=== PATIENT | male | born 1975 | race African-American/Black ===

== ENCOUNTER 2023-10-29 11:38 | Inpatient (IN) | payer BC, SELFPAY ==
[2023-10-29] VITALS (64 sets, daily range): BP systolic 118–180; BP diastolic 86–127; PULSE 79–140; RESP 13–25; TEMP 36.4–36.6; O2SAT 91–100
[2023-10-29] MEDS: dextrose 10% 1,000 ML 250 ML IV (11:58)
--- NOTE | 2023-10-29 12:02 | XRR_ITS ---
PROCEDURE INFORMATION: Exam: XR Chest Exam date and time: 10/29/2023 12:13 PM Age: 48 years old Clinical indication: Cough and dyspnea; Additional info: Dyspnea/cough TECHNIQUE: Imaging protocol: Radiologic exam of the chest. Views: 1 view. COMPARISON: No relevant prior studies available. FINDINGS: Tubes, catheters and devices: A right IJ CVC tip is in the right atrium. The proximal end is not visualized and I question disruption. Lungs: Unremarkable. No consolidation. Pleural spaces: Unremarkable. No pleural effusion. No pneumothorax. Heart/Mediastinum: Unremarkable. No cardiomegaly. Bones/joints: Unremarkable. XR/XR chest 1V portable [id number] IMPRESSION: 1. A right IJ CVC tip is in the right atrium. The proximal end is not visualized and I question disruption. 2. No acute cardiopulmonary abnormality.
--- NOTE | 2023-10-29 12:05 | PC.NURSE ---
VERBAL ORDERS FROM DR. HUYNH TO START THE D10 WIDE OPEN IN ORDER TO GET 250ML IN PATIENT THEN TO DROP RATE TO 50MLS AN HOUR AFTERWARDS.
--- NOTE | 2023-10-29 12:06 | PC.NURSE ---
CENTRAL LINE PLACED. PROVIDER ORDERED AMP OF D50, PULLED FROM PYXIS AND GIVEN.
--- NOTE | 2023-10-29 12:08 | ED_ITS ---
HPI - Weakness 2 General: Chief complaint: Weakness Stated complaint: Hypoglycemic Time Seen by Provider: 10/29/23 11:54 Source: patient and EMS Mode of arrival: EMS History of Present Illness: 48-year-old male presents emergency room via EMS severely hypoglycemic with reports of chronic daily alcohol use total intake daily is unknown. EMS found him unresponsive initial blood glucose at the scene was 26 they were able to give him 30 g of oral glucose however after that they only were able to get Accu-Cheks of low. They were only a few blocks from the emergency room so transported him directly they did not have time to establish an IV he is a very difficult stick. Additionally crew shank rander that it was more appropriate to get him to the ER given his overall condition which I concur with. Immediately upon arrival patient is groaning in response makes a few intelligible words withdraws to pain does open his eyes to verbal stimuli. We are unable to establish a IV emergently placed central line he was given D50 and 250 mL of D10. Associated symptoms: Denies chest pain, chills, dysuria or fever(s) Review of Systems 2 Const: Denies: fever(s) or chills Card: Denies: chest pain Resp: Denies: dyspnea GI: Denies: abdominal pain : Denies: dysuria, urinary frequency or urinary urgency Musc: Denies: neck pain or back pain Skin/Breast: Denies: rash PFSH ED 2 PFSH: Medical History (Updated 10/29/23 @ 15:37 by Yunier Cotto DO) Chronic alcoholism Esophageal varices Social History (Updated 10/29/23 @ 12:10 by Yunier Cotto DO) Alcohol intake: current Alcohol intake frequency: 3 or more drinks per day Alcohol type: hard liquor Physical Exam 2 Const: GENERAL APPEARANCE: cooperative and comfortable O RIENTATION/CONSCIOUSNESS: Yes awake HENMT: COMMON NORMALS: normocephalic, atraumatic and hearing grossly normal bilaterally HEAD & SCALP: normocephalic and atraumatic Resp: COMMON NORMALS: normal respiratory effort, No retractions, No use of accessory muscles and clear to auscultation bilaterally AUSCULTATION: clear to auscultation bilaterally Cardio: COMMON NORMALS: regular rhythm and No murmurs present (Cardio) R ATE: tachycardic RHYTHM: regular rhythm GI: COMMON NORMALS: Soft to palpation and No hepatosplenomegaly present A USCULTATION: Yes normoactive bowel sounds PALPATION: Yes Soft to palpation, No Tenderness to palpation present (GI), No Guarding due to palpation present (GI) and Yes No hepatosplenomegaly present Extremity: COMMON NORMALS: normal to inspection, capillary refill normal, no clubbing, cyanosis or edema, no calf tenderness and no pedal edema Neuro: USMAN COMA SCALE: document GCS findings Usman coma scale eye opening: To sound [place] coma scale verbal response: Words Usman coma scale motor response: Obey commands [place] coma scale total score: 12 Skin: COMMON NORMALS: no rashes or lesions noted GENERAL SKIN EXAM: no rashes or lesions noted Procedures Central Line Placement Right IJ: Patient Placed on Monitor/Pulse Ox: Yes MD Prep: mask, gown and gloves Central Line Prep: Chlorhexidine scrub Local Anesthetic: lidocaine 1% Amount of anesthesia used (mL): 5 Central Line Lumen Inserted: triple Post Procedure: sutured in place, good blood return, all ports aspirated, flushed, capped and sterile dressing applied Post Procedure X-Ray: tip of catheter in good position and no pneumothorax seen Patient Tolerated Procedure: well Complications: none Course 2 Vital Signs: Vital signs: Vital Signs Pulse Rate 120 H 10/29/23 14:46 Respiratory Rate 20 H 10/29/23 12:45 Blood Pressure 147/87 10/29/23 14:24 Pulse Oximetry 100 10/29/23 14:24 Oxygen Delivery Me thod Room Air 10/29/23 14:49 MDM - Weakness Medical Decision Making Encephalopathy with hypoglycemia and severe high anion gap metabolic acidosis. In talking to the family they are convinced there is no potential that he access methanol or ethylene glycol. I suspect this is all starvation and alcohol driven although interestingly he has no ketones. We have ordered secondary testing including serum osmolality and methanol levels. Central line was placed emergently and patient first arrived. He has been given bicarb and potassium. He is also been given fluids. There is no sign of infection at this time discussed with Dr. Zheng whether or not we should cover with antibiotics I do not believe he is septic at this point. She will evaluate further and decide if she wishes to start antibiotic. He was given a fluid bolus of 2000 mL which is greater than 30 mg/kg fluid bolus for sepsis. Cultures have been ordered. Additionally his significant other is with him and is assisting us in getting old records from [place] where he stayed hospitalized in the past. Lab Data I reviewed the patient's lab results. 10/29/23 11:55 10/29/23 11:55 Radiology Impressions Chest X-Ray 10/29/23 12:02 IMPRESSION: 1. A right IJ CVC tip is in the right atrium. The proximal end is not visualized and I question disruption. 2. No acute cardiopulmonary abnormality. ADDENDUM: 10/29/23 4670 The appearance of the proximal end of the right IJ CVC was discussed with Dr. Cotto. The reservoir is radiolucent on this image due to the patient's diminished body fat and the reservoir projecting above the patient's shoulder. This CVC is intact. Head CT 10/29/23 13:25 IMPRESSION: 1. No acute intracranial hemorrhage or edema. 2. Mild cerebral atrophy. No prior infarct. Laboratory Results WBC 12.71 10^3/uL (3.29-11.43) H 10/29/23 11:55 RBC 2.88 10^6/uL (3.85-5.65) L 10/29/23 11:55 Hgb 10.60 g/dL (11.27-16.99) L 10/29/23 11:55 Hct 31.6 % (37-53) L 10/29/23 11:55 MCV 109.7 fl (82-101) H 10/29/23 11:55 MCH 36.8 pg (27-33) H 10/29/23 11:55 MCHC 33.5 g/dL (30-55) 10/29/23 11:55 RDW 14.5 % (12.1-15.1) 10/29/23 11:55 Plt Count 230 10^3/cmm (157-399) 10/29/23 11:55 MPV 11.9 fL (7.4-10.4) H 10/29/23 11:55 Neut % (Auto) 87.9 % 10/29/23 11:55 Lymph % (Auto) 3.9 % 10/29/23 11:55 [place] % (Auto) 7.2 % 10/29/23 11:55 Eos % (Auto) 0.0 % 10/29/23 11:55 Baso % (Auto) 0.2 % 10/29/23 11:55 Neut # (Auto) 11.19 10^3/uL (1.8-7.7) H 10/29/23 11:55 Lymph # (Auto) 0.5 10^3/uL (0.8-4.8) L 10/29/23 11:55 [place] # (Auto) 0.9 10^3/uL (0.2-0.9) 10/29/23 11:55 Eos # (Auto) 0.0 10^3/uL (0.0-0.8) 10/29/23 11:55 Baso # (Auto) 0.0 10^3/uL (0.0-0.1) 10/29/23 11:55 Nucleated RBC % (auto) 0.3 % 10/29/23 11:55 Nucleated RBCs # 0.0 /100WBC 10/29/23 11:55 PT 20.10 SECONDS (12.1-14.9) H 10/29/23 11:55 INR 1.65 (0.8-1.2) H 10/29/23 11:55 APTT 30.3 SECONDS (23.9-36.7) 10/29/23 11:55 Specimen Type Arterial 10/29/23 12:45 Sample Site Brachial, left 10/29/23 12:45 ABG pH 7.08 (7.35-7.45) L* 10/29/23 12:45 ABG pCO2 12.1 mmHg (35-45) L* 10/29/23 12:45 ABG pO2 117.0 mmHg (80.0-100.0) H 10/29/23 12:45 ABG PO2/FiO2 Ratio 0 10/29/23 12:45 ABG HCO3 3.6 mmol/L (22-26) L 10/29/23 12:45 ABG O2 Saturation 96.4 10/29/23 12:45 ABG Base Excess -24.2 mmol/L (-2.0-2.0) L 10/29/23 12:45 Bertrand Test N/a 10/29/23 12:45 A-a O2 Gradient 1.8 mmHg (5-10) L 10/29/23 12:45 Hematocrit 31.3 % (42-52) L 10/29/23 12:45 Hgb O2 Saturation 94.4 % (95-100) L 10/29/23 12:45 Carboxyhemoglobin 1.2 %THgb (0.4-20.1) 10/29/23 12:45 Methemoglobin 0.9 % (0.4-1.5) 10/29/23 12:45 Total Hemoglobin 10.2 g/dL (14-18) L 10/29/23 12:45 Sodium 139.0 mmol/L (131-143) 10/29/23 12:45 Potassium 2.5 mmol/L (3.5-5.0) L 10/29/23 12:45 Glucose 312.0 mg/dL (70-115) H 10/29/23 12:45 Ionized Calcium 1.1 mmol/L (1.1-1.4) 10/29/23 12:45 O2 Delivery Device Room air 10/29/23 12:45 FiO2 21.0 % 10/29/23 12:45 Agile Scrum Master ID Amh 10/29/23 12:45 Sodium 137 mmol/L (136-145) 10/29/23 11:55 Potassium 2.2 mmol/L (3.5-5.1) L* 10/29/23 11:55 Chloride 84 mmol/L (98-107) L 10/29/23 11:55 Carbon Dioxide 5 mmol/L (22-29) L* 10/29/23 11:55 Anion Gap 50.2 (5-19) H 10/29/23 11:55 BUN 11 mg/dL (6-20) 10/29/23 11:55 Creatinine 0.9 mg/dL (0.7-1.2) 10/29/23 11:55 GFR Calculation 109.9 mL/min (90-130) 10/29/23 11:55 Glucose 460 mg/dL (65-115) H 10/29/23 11:55 POC Glucose 341 mg/dL (70-110) H 10/29/23 12:13 Calculated Osmolality 303 mOsm/kg (285-295) H 10/29/23 11:55 Lactic Acid 29.9 mmol/L (0.5-2.2) H* 10/29/23 11:55 Calcium 9.4 mg/dL (8.5-10.5) 10/29/23 11:55 Magnesium 2.1 mg/dL (1.7-2.3) 10/29/23 11:55 Total Bilirubin 4.7 mg/dL (0.15-1.2) H 10/29/23 11:55 AST 306 U/L (0-40) H 10/29/23 11:55 ALT 82 U/L (0-41) H 10/29/23 11:55 Alkaline Phosphatase 283 U/L (40-130) H 10/29/23 11:55 Ammonia 74 umol/L (16-60) H 10/29/23 11:55 Creatine Kinase 25 U/L (39-308) L 10/29/23 11:55 Troponin T Baseline 12 ng/L (0-15) 10/29/23 11:55 Total Protein 7.2 g/dL (6.6-8.7) 10/29/23 11:55 Albumin 3.2 g/dL (3.5-5.2) L 10/29/23 11:55 Globulin 4.0 g/dL (1.3-4.6) 10/29/23 11:55 Lipase 20 U/L (13-60) 10/29/23 11:55 Salicylates < 0.3 mg/dL (3-10) L 10/29/23 11:55 Acetaminophen < 5.0 ug/mL (10-30) L 10/29/23 11:55 Ethyl Alcohol < 10 mg/dL (0-10) 10/29/23 11:55 Serum Ketones Negative (Negative) 10/29/23 11:55 All radiology interpretation(s) finalized by discharge Critical Care Time 2 Critical Care Time: Critical Care Time: Yes Total Critical Care Time: 40 Attestation: The high probability of a clinically significant, sudden or life threatening deterioration of the patient's cardiovascular respiratory endocrine system(s) required my full and direct attention, intervention and personal management. The critical care time is as shown. This time is in addition to time spent performing any reported procedures but includes the following: [x] Data and vital sign review and interpretation [x] Patient assessment, examination and intervention [x] Documentation [x] Medication orders and management Discharge Plan Discharge Patient Disposition: Admitted As Inpatient Admit Provider: Annamarie Zheng Clinical Impression: Chronic alcoholism, Esophageal varices, Hypoglycemia, Acute metabolic encephalopathy, Wernicke encephalopathy, Acute hypokalemia, Metabolic acidosis, Acute lactic acidosis Condition: Stable Coding Level of Care Code ED Waterworks Operator for Yeimy Weinberg
--- NOTE | 2023-10-29 12:12 | ECG_ITS ---
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 Measurements Intervals [place] Rate: 120 P: 81 WV: 236 QRS: 63 QRSD: 87 T: 80 QT: 423 QTc: 600 Interpretive Statements SINUS TACHYCARDIA WITH FIRST DEGREE AV BLOCK MODERATE ST DEPRESSION [0.05+ mV ST DEPRESSION] No previous ECG available for comparison Electronically Signed On 10-29-2023 23:22:33 CDT by Delfino Cardenas M.D. [id number]
[2023-10-29] MEDS: dextrose 50% syringe 50 mL IVP (12:16)
[2023-10-29 12:18] LABS: Basophils % 0.2 %; Hematocrit 31.6 % (37-53); Lymphocytes # 0.5 10^3/uL (0.8-4.8); Lymphocytes % 3.9 %; Mean Corpuscular HGB Conc 33.5 g/dL (30-55); Mean Corpuscular Hemoglobin 36.8 pg (27-33); Mean Corpuscular Volume 109.7 fl (82-101); Mean Platelet Volume 11.9 fL (7.4-10.4); Monocytes # 0.9 10^3/uL (0.2-0.9); Monocytes % 7.2 %; Neutrophils # 11.19 10^3/uL (1.8-7.7); Neutrophils % 87.9 %; Nucleated Red Blood Cells % 0.3 %; Platelet Count 230 10^3/cmm (157-399); Red Blood Count 2.88 10^6/uL (3.85-5.65); Red Cell Distribution Width 14.5 % (12.1-15.1); White Blood Count 12.71 10^3/uL (3.29-11.43)
[2023-10-29 12:18] LABS: Glucose Point of Care 341 mg/dL (70-110)
--- NOTE | 2023-10-29 12:25 | PC.NURSE ---
D10 STOPPED PER VERBAL ORDERS FROM DR. HUYNH DUE TO BLOOD SUGAR OF 341.
[2023-10-29] MEDS: sodium chloride 0.9% 1,000 ML 999 ML IV ×2 (12:31→13:29)
[2023-10-29] MEDS: LORazepam 2 mg/mL INJ 10 mL MDV IVP (12:31)
[2023-10-29 12:38] LABS: Alanine Aminotransferase 82 U/L (0-41); Albumin Level 3.2 g/dL (3.5-5.2); Alkaline Phosphatase 283 U/L (40-130); Aspartate Amino Transferase 306 U/L (0-40); Blood Urea Nitrogen 11 mg/dL (6-20); Calcium 9.4 mg/dL (8.5-10.5); Chloride 84 mmol/L (98-107); Creatine Phosphokinase 25 U/L (39-308); Creatinine Clr Calc Pharmacy 100.3845; Glomerular Filtration Rate 109.9 mL/min (90-130); Glucose 460 mg/dL (65-115); Lipase 20 U/L (13-60); Magnesium 2.1 mg/dL (1.7-2.3); Osmolality Calculated 303 mOsm/kg (285-295); Sodium 137 mmol/L (136-145); Total Bilirubin 4.7 mg/dL (0.15-1.2); Total Protein 7.2 g/dL (6.6-8.7); Troponin(5th) Baseline 12 ng/L (0-15)
[2023-10-29 12:39] LABS: Ammonia 74 umol/L (16-60)
[2023-10-29 12:44] LABS: Acetaminophen < 5.0 ug/mL (10-30); Alcohol Level < 10 mg/dL (0-10); Anion Gap 50.2 (5-19); Potassium 2.2 mmol/L (3.5-5.1); Salicylate < 0.3 mg/dL (3-10)
[2023-10-29 12:45] LABS: Carbon Dioxide 5 mmol/L (22-29)
[2023-10-29 12:52] LABS: Ketone (Acetest) Serum Negative (Negative)
[2023-10-29 12:54] LABS: INR 1.65 (0.8-1.2)
[2023-10-29 12:55] LABS: Partial Thromboplastin Time 30.3 SECONDS (23.9-36.7)
[2023-10-29 12:57] LABS: Alveolar-Arterial Oxygen Gradi 1.8 mmHg (5-10); Arterial Blood Gas Hematocrit 31.3 % (42-52); Base Excess ABG -24.2 mmol/L (-2.0-2.0); Blood Gas Operator Identificat AMH; Blood Gas Sample Site Brachial, left; Blood Gas Sample Type Arterial; Carboxyhemoglobin 1.2 %THgb (0.4-20.1); HCO3 ABG 3.6 mmol/L (22-26); HGB O2 Sat 94.4 % (95-100); Ionized Calcium Level - ABG 1.1 mmol/L (1.1-1.4); Methemoglobin 0.9 % (0.4-1.5); Oxygen Device ROOM AIR; Oxygen Saturation ABG 96.4; PO2 FiO2 Ratio Arterial Blood 0; Potassium Level - ABG 2.5 mmol/L (3.5-5.0); Total Hemoglobin 10.2 g/dL (14-18)
[2023-10-29 12:58] LABS: ABG PCO2 12.1 mmHg (35-45); ABG PH Result 7.08 (7.35-7.45)
[2023-10-29 13:08] LABS: Lactic Sepsis W/Reflex 29.9 mmol/L (0.5-2.2)
--- NOTE | 2023-10-29 13:09 | PC.PHAR ---
pts family verified pts medications-states the pt stop taking his medications for 2 months and just recently restarted taking again-states the pt is still taking amlodipine 10mg jolie gonsalez last filled 01/19/23 30d/s-baclofen 20mg bid filled 05/15/23 30d/s-metoprolol succ er 50mg daily filled 08/14/23 30d/s-biktarvy 50/200/25mg one tab daily filled 09/03/23 30d/s-prilosec 20mg daily filled 09/03/23 30d/s and xifaxan 550mg bid filled 10/07/23 30d/s-
--- NOTE | 2023-10-29 13:25 | CT_ITS ---
WS: [id number] CT HEAD NONCONTRAST HISTORY: AMS/encephalopathy TECHNIQUE: Contiguous axial imaging performed through the brain in 2.5 mm imaging. Bone and soft tiss ue windows. Sagittal and coronal reformats reviewed. All CT scans at [facility] use at least one of these dose optimization techniques: automated exposure control; mA and/or kV adjustment per pa tient size (includes targeted exams where dose is matched to clinical indication); or iterative recon struction. DLP: 1123.67 mGy.cm COMPARISON: None available. No acute intracranial hemorrhage, midline shift or mass effect. Mild atrophy. Mild small vessel ischemic disease. No prior infarct. Ventricles: Normal size with no hydrocephalus. No inferior displacement of the cerebellar tonsils. Paranasal sinuses: As visualized are clear. Mastoid air cells: Well pneumatized. Calvarium and scalp: Skull is intact with no soft tissue edema or swelling. CT/CT head wo con* [id number] IMPRESSION: 1. No acute intracranial hemorrhage or edema. 2. Mild cerebral atrophy. No prior infarct.
[2023-10-29] MEDS: potassium chloride premix 100 ML 25 MEQ IV ×2 (13:29→17:58)
[2023-10-29 13:30] LABS: Add Urine Microscopic? NO; Charge for UA Resulting for Rev
[2023-10-29 13:34] LABS: Bilirubin Urine Neg (Negative); Blood Urine Neg (Negative); Glucose Urine UA 1+ (Normal); Ketones Urine 1+ (Negative); Leukocyte Esterase Urine Negative (Negative); Nitrate Urine Negative (Negative); Protein Urine Neg (Negative); Urine Appearance Clear (CLEAR); Urine Color Yellow (Yellow); Urobilinogen Urine 1 mg/dL (Negative); pH Urine 5 (5-7)
[2023-10-29 13:40] LABS: Amphetamines Screen Urine Negative (Negative); Barbiturates Screen Urine Negative (Negative); Benzodiazepines Screen Urine Negative (Negative); Cocaine Screen Urine Negative (Negative); Opiate Screen Urine Negative (Negative); PCP Screen Urine Negative (Negative); THC Screen Urine Negative (Negative)
[2023-10-29 14:00] LABS: Reflex Lactate Order REFLEX LACTIC ORDERD
--- NOTE | 2023-10-29 14:07 | ECG_ITS ---
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 Measurements Intervals [place] Rate: 125 P: 79 [place]: 195 QRS: 57 QRSD: 90 T: 76 QT: 402 QTc: 580 Interpretive Statements SINUS TACHYCARDIA MODERATE T-WAVE ABNORMALITY, CONSIDER ANTERIOR ISCHEMIA [-0.1+ mV T-WAVE IN V3/V4] Compared to ECG 10/29/2023 12:12:56 T-wave abnormality now present Possible ischemia now present First degree AV block no longer present ST (T wave) deviation no longer present Electronically Signed On 10-29-2023 23:24:21 CDT by Delfino Cardenas M.D. [id number]
[2023-10-29] MEDS: sodium bicarbonate 150 MEQ in dextrose 5% 250 ML 500 MEQ IV (14:21)
--- NOTE | 2023-10-29 14:36 | P.HP_ITS ---
Providers/Chief Complaint 2 Admitting Physician: Annamarie Zheng MD Primary Care Provider: Dr Du at [facility] in [place], [place] ([phone] main number) Chief Complaint: Hypoglycemic History of Present Illness Jack Meek is a 48 year old male who presented to the emergency room via EMS with a chief complaint of decreased responsiveness. Patient is from [facility] and was here locally visiting. His boyfriend José is with him and has provided his care for the last few weeks. José can be reached at [phone]. At baseline patient has a history of chronic alcohol use with associated alcoholic liver disease. He has had episodes of pancreatitis with the most recent hospitalization being at [facility] in [facility]. Last year he had a pancreatic cyst that required drainage. He is known to be HIV positive. He has been prescribed antiretroviral therapy but over the last few months he is only taking it a couple of times. He has a history of hypertension. Over the last few weeks while Mr. Meek and José had been traveling, he has had a gradual continued decline in his overall condition with increasing weakness, episodes of confusion, difficulty with his speech over the last week. No report of any fevers, abdominal pain, changes in bowel or bladder function, cough or upper respiratory symptoms. He has not really had much in the way of solid food at all for the last couple of weeks and has not wanted to consume much liquid. José has been buying vodka intermittently to help avoid any alcohol withdrawal symptoms while they have been traveling. He has no personal history of delirium tremens but has had some alcohol withdrawal symptoms in the past. Today he was minimally responsive leading Don to call EMS who brought him in. Prior to today patient had refused consideration for acute hospital care/evaluation despite José's urging. Mr. Meek has been found to have multiple critical labs. Initial blood sugar was in the 20s. He received an amp of D50 and some IV fluids were started immediately. Blood sugar subsequently increased into the several 100s. Initial ABG showed 7.08/12/117/3.6 on room air. Initial lactic acid was 29.9. Vital signs on arrival showed heart rate of 128, blood pressure 180/126, respirations of 24 and room air saturations of 100%. Patient has no known history of diabetes and no access to any oral hypoglycemic agents. He has not had any access to anything except that which José has given him. José denies any moonshine or other form of homemade alcohol, antifreeze there are other sources of ethylene glycol. Jack has only consumed intermittent vodka and water or other drinks intended for human consumption from available information. I was able to get some records from [facility] in [facility]. He had a similar presentation in July of this year though at that point in time I had acute renal failure in addition to hypokalemia. Degree of acidosis not as severe with lactic acid at 10. Ammonia level then was only 46. He received primarily IV fluids, electrolyte replacement, antibiotic therapies which also included rifaximin. Notes indicate significant improvement with IV fluid hydration alone. He had been doing okay after that hospital stay until the last few weeks. With multiple critical abnormalities, patient is being admitted to the intensive care unit for further care and evaluation. History is obtained from patient's boyfriend José who is here as well as supplemented by the patient himself. Mr. Meek speech is difficult to understand at times. Review of Systems 2 General: Reports: Other (As noted in the history of present illness or here) Const: Reports: change in appetite (Not eating much of anything nor drinking), change in weight (Decrease), fatigue, malaise and change in sleep pattern (Tired all the time); Denies: fever(s) Eyes: Reports: yellow eyes; Denies: change in vision or photophobia ENMT: Denies: odynophagia (Though not wanting to take water even) Card: Denies: chest pain Resp: Denies: productive cough or hemoptysis GI: Reports: nausea, constipation and other (No appetite); Denies: abdominal pain, vomiting, coffee ground emesis, dysphagia, diarrhea, hematochezia or melena : Reports: oliguria; Denies: difficulty urinating or hematuria Musc: Reports: muscle cramps, muscle weakness and decrease in muscle mass; Denies: neck pain, back pain or extremity pain Skin/Breast: Reports: dry skin; Denies: pruritus or sores Neuro: Reports: numbness in extremities, weakness in extremities, difficulty walking, confusion and Slurred speech present; Denies: headache(s), frequent falls, seizure-like activity or involuntary movements Endo: Reports: other (No history of diabetes) Scott/Lymph: Denies: easy bleeding Medications/Allergies Home Medications Medication Instructions Recorded Confirmed Last Taken Type amlodipine 10 mg tablet 10 mg PO QAM 10/29/23 10/29/23 10/28/23 History baclofen 20 mg tablet 20 mg PO BID PRN muscle relaxer 10/29/23 10/29/23 Unknown History bictegravir 50 mg-emtricitabine 1 tab PO QAM 10/29/23 10/29/23 Unknown History 200 mg-tenofovir alafenam 25 mg tablet (Biktarvy) ibuprofen 800 mg tablet 800 mg PO TID PRN Pain 10/29/23 10/29/23 Unknown History metoprolol succinate 50 mg 50 mg PO QAM 10/29/23 10/29/23 10/28/23 History tablet,extended release 24 hr multivitamin 2 tab PO DAILY 10/29/23 10/29/23 Unknown History omeprazole 20 mg capsule,delayed 20 mg PO QAM 10/29/23 10/29/23 10/28/23 History release rifaximin 550 mg tablet (Xifaxan) 550 mg PO BID 10/29/23 10/29/23 Unknown History tramadol 50 mg tablet 50 mg PO BID PRN Pain 10/29/23 10/29/23 Unknown History Allergies Allergy/AdvReac Type Severity Reaction Status Date / Time procaine [From Novocain] Allergy Unknown Verified 10/29/23 13:08 Additional Medication Information Patient is not consistently compliant with home medications as noted above. Has not been am[employer] regularly, no longer takes Rifixamen. Baclofen, tramadol and ibuprofen are primarily prescribed for pancreatitis pain when needed. PFSH Acute 2 PFSH: Medical History (Updated 10/29/23 @ 18:48 by Annamarie Zheng MD) Depression Hypertension Esophageal candidiasis probable diagnosis in 07/2023 History of Wernicke's encephalopathy Human immunodeficiency virus prescribed antiviral therapy but not consistently taken Alcoholic liver disease Pancreatic cyst drained in 2022 Pancreatitis Chronic, secondary to alcohol, with intermittent acute events Chronic alcoholism Esophageal varices possible history Surgical History (Updated 10/29/23 @ 18:15 by Annamarie Zheng MD) History of esophagogastroduodenoscopy (EGD) 12/2022 with foreign body removal 08/2022 with endoscopic US and pancreatic pseudocyst transmural drainage at [facility] in History of pancreatic surgery 08/2022 axios and double pigtail stents placed at pancreatic pseudocyst at [facility] in Social History (Updated 10/29/23 @ 16:11 by Annamarie Zheng MD) Smoking and tobacco/nicotine status: current every day tobacco/nicotine user Alcohol intake: current Alcohol intake frequency: 3 or more drinks per day Alcohol type: hard liquor Additional social history: Significant other is José [phone] Other PFSH information: Supplemental PFS Information: No known family history Has a daughter Vitals/I&O/Wt Last Vital Signs Pulse 120 H 10/29/23 14:24 Resp 20 H 10/29/23 12:45 BP 147/87 10/29/23 14:24 Pulse Ox 100 10/29/23 14:24 O2 Del Method Room Air 10/29/23 14:24 10/28/23 10/29/23 10/29/23 22:59 06:59 14:59 Intake Total 1022.367 / 1022.367 Balance 1022.367 / 1022.367 Weight last 48 hrs Weight 63.503 kg Physical Exam 2 Narrative: Patient is intermittently lethargic but will awaken and try to ask questions. He is feeling better from initial presentation today according to his boyfriend. He is currently oriented to person and to the fact that he is in the hospital. Overall has a thin build with evident muscle wasting such as bitemporal, thenar and large muscle atrophy. Otherwise normocephalic. Icteric sclera are noted bilaterally. Extraocular movements are grossly intact with no nystagmus noted. Inconsistent focused neurological examination due to current clinical condition. Oropharynx is very dry. Mucous membranes are pink. Neck is supple. Lungs are clear to auscultation. Tachypnea noted. Cardiovascular exam reveals a tachycardic, regular rhythm. Capillary refill is around 3 seconds. Hands and feet are slightly cool to touch. Numbness noted to the feet more so than the hands in a stocking glove like distribution. Abdomen is soft with decreased bowel sounds though present. No flank tenderness or other areas of abdominal tenderness. No masses noted. Orozco catheter is in place. No pitting edema. Various old scars noted. Central venous line in the right neck is intact. Handgrip is equal bilaterally. Slight left-sided facial droop is noted with loss of nasolabial fold and decreased movement of the left face with speaking attempts. No drooling is noted there are minimal oral secretions. Left foot with some hyperextension. 4 beat clonus noted to both feet at the ankle. Toes are equivocal. No mottling is noted though skin is dry. Urinary Catheter Management: Orozco: Cath Placed During This Visit: yes Urinary Catheter Date of Insertion: 10/29/23 Urinary Catheter Time of Insertion: 13:27 Data 10/29/23 11:55 10/29/23 11:55 Other Labs: Radiology Impressions Chest X-Ray 10/29/23 12:02 IMPRESSION: 1. A right IJ CVC tip is in the right atrium. The proximal end is not visualized and I question disruption. 2. No acute cardiopulmonary abnormality. Head CT 10/29/23 13:25 - no contrast IMPRESSION: 1. No acute intracranial hemorrhage or edema. 2. Mild cerebral atrophy. No prior infarct. Laboratory Results WBC 12.71 10^3/uL (3.29-11.43) H 10/29/23 11:55 RBC 2.88 10^6/uL (3.85-5.65) L 10/29/23 11:55 Hgb 10.60 g/dL (11.27-16.99) L 10/29/23 11:55 Hct 31.6 % (37-53) L 10/29/23 11:55 MCV 109.7 fl (82-101) H 10/29/23 11:55 MCH 36.8 pg (27-33) H 10/29/23 11:55 MCHC 33.5 g/dL (30-55) 10/29/23 11:55 RDW 14.5 % (12.1-15.1) 10/29/23 11:55 Plt Count 230 10^3/cmm (157-399) 10/29/23 11:55 MPV 11.9 fL (7.4-10.4) H 10/29/23 11:55 Neut % (Auto) 87.9 % 10/29/23 11:55 Lymph % (Auto) 3.9 % 10/29/23 11:55 Graves % (Auto) 7.2 % 10/29/23 11:55 Eos % (Auto) 0.0 % 10/29/23 11:55 Baso % (Auto) 0.2 % 10/29/23 11:55 Neut # (Auto) 11.19 10^3/uL (1.8-7.7) H 10/29/23 11:55 Lymph # (Auto) 0.5 10^3/uL (0.8-4.8) L 10/29/23 11:55 Graves # (Auto) 0.9 10^3/uL (0.2-0.9) 10/29/23 11:55 Eos # (Auto) 0.0 10^3/uL (0.0-0.8) 10/29/23 11:55 Baso # (Auto) 0.0 10^3/uL (0.0-0.1) 10/29/23 11:55 Nucleated RBC % (auto) 0.3 % 10/29/23 11:55 Nucleated RBCs # 0.0 /100WBC 10/29/23 11:55 PT 20.10 SECONDS (12.1-14.9) H 10/29/23 11:55 INR 1.65 (0.8-1.2) H 10/29/23 11:55 APTT 30.3 SECONDS (23.9-36.7) 10/29/23 11:55 Specimen Type Arterial 10/29/23 12:45 Sample Site Brachial, left 10/29/23 12:45 ABG pH 7.08 (7.35-7.45) L* 10/29/23 12:45 ABG pCO2 12.1 mmHg (35-45) L* 10/29/23 12:45 ABG pO2 117.0 mmHg (80.0-100.0) H 10/29/23 12:45 ABG PO2/FiO2 Ratio 0 10/29/23 12:45 ABG HCO3 3.6 mmol/L (22-26) L 10/29/23 12:45 ABG O2 Saturation 96.4 10/29/23 12:45 ABG Base Excess -24.2 mmol/L (-2.0-2.0) L 10/29/23 12:45 Bertrand Test N/a 10/29/23 12:45 A-a O2 Gradient 1.8 mmHg (5-10) L 10/29/23 12:45 Hematocrit 31.3 % (42-52) L 10/29/23 12:45 Hgb O2 Saturation 94.4 % (95-100) L 10/29/23 12:45 Carboxyhemoglobin 1.2 %THgb (0.4-20.1) 10/29/23 12:45 Methemoglobin 0.9 % (0.4-1.5) 10/29/23 12:45 Total Hemoglobin 10.2 g/dL (14-18) L 10/29/23 12:45 Sodium 139.0 mmol/L (131-143) 10/29/23 12:45 Potassium 2.5 mmol/L (3.5-5.0) L 10/29/23 12:45 Glucose 312.0 mg/dL (70-115) H 10/29/23 12:45 Ionized Calcium 1.1 mmol/L (1.1-1.4) 10/29/23 12:45 O2 Delivery Device Room air 10/29/23 12:45 FiO2 21.0 % 10/29/23 12:45 Civil Litigation Attorney ID Amh 10/29/23 12:45 Sodium 137 mmol/L (136-145) 10/29/23 11:55 Potassium 2.2 mmol/L (3.5-5.1) L* 10/29/23 11:55 Chloride 84 mmol/L (98-107) L 10/29/23 11:55 Carbon Dioxide 5 mmol/L (22-29) L* 10/29/23 11:55 Anion Gap 50.2 (5-19) H 10/29/23 11:55 BUN 11 mg/dL (6-20) 10/29/23 11:55 Creatinine 0.9 mg/dL (0.7-1.2) 10/29/23 11:55 GFR Calculation 109.9 mL/min (90-130) 10/29/23 11:55 Glucose 460 mg/dL (65-115) H 10/29/23 11:55 POC Glucose 341 mg/dL (70-110) H 10/29/23 12:13 Calculated Osmolality 303 mOsm/kg (285-295) H 10/29/23 11:55 Lactic Acid 29.9 mmol/L (0.5-2.2) H* 10/29/23 11:55 Calcium 9.4 mg/dL (8.5-10.5) 10/29/23 11:55 Magnesium 2.1 mg/dL (1.7-2.3) 10/29/23 11:55 Total Bilirubin 4.7 mg/dL (0.15-1.2) H 10/29/23 11:55 AST 306 U/L (0-40) H 10/29/23 11:55 ALT 82 U/L (0-41) H 10/29/23 11:55 Alkaline Phosphatase 283 U/L (40-130) H 10/29/23 11:55 Ammonia 74 umol/L (16-60) H 10/29/23 11:55 Creatine Kinase 25 U/L (39-308) L 10/29/23 11:55 Troponin T Baseline 12 ng/L (0-15) 10/29/23 11:55 Troponin T 120 Minute 17.60 ng/L (0-15) H 10/29/23 14:00 Delta Troponin T 5.60 ABS# (0-10) 10/29/23 14:00 Total Protein 7.2 g/dL (6.6-8.7) 10/29/23 11:55 Albumin 3.2 g/dL (3.5-5.2) L 10/29/23 11:55 Globulin 4.0 g/dL (1.3-4.6) 10/29/23 11:55 Lipase 20 U/L (13-60) 10/29/23 11:55 Urine Color Yellow (Yellow) 10/29/23 13:25 Urine Appearance Clear (CLEAR) 10/29/23 13:25 Urine pH 5 (5-7) 10/29/23 13:25 Ur Specific Sibley 1.020 (1.005-1.030) 10/29/23 13:25 Urine Protein Neg (Negative) 10/29/23 13:25 Urine Glucose (UA) 1+ (Normal) H 10/29/23 13:25 Urine Ketones 1+ (Negative) H 10/29/23 13:25 Urine Blood Neg (Negative) 10/29/23 13:25 Urine Nitrate Negative (Negative) 10/29/23 13:25 Urine Bilirubin Neg (Negative) 10/29/23 13:25 Urine Urobilinogen 1 mg/dL (Negative) H 10/29/23 13:25 Ur Leukocyte Esterase Negative (Negative) 10/29/23 13:25 Salicylates < 0.3 mg/dL (3-10) L 10/29/23 11:55 Urine Opiates Screen Negative ng/mL (Negative) 10/29/23 13:25 Acetaminophen < 5.0 ug/mL (10-30) L 10/29/23 11:55 Ur Barbiturates Screen Negative ng/mL (Negative) 10/29/23 13:25 Ur Phencyclidine Scrn Negative ng/mL (Negative) 10/29/23 13:25 Ur Amphetamines Screen Negative ng/mL (Negative) 10/29/23 13:25 U Benzodiazepines Scrn Negative ng/mL (Negative) 10/29/23 13:25 Urine Cocaine Screen Negative ng/mL (Negative) 10/29/23 13:25 U Marijuana (THC) Screen Negative ng/mL (Negative) 10/29/23 13:25 Ethyl Alcohol < 10 mg/dL (0-10) 10/29/23 11:55 Serum Ketones Negative (Negative) 10/29/23 11:55 Laboratory Tests 10/29/23 15:20 ABG pH 7.23 L ABG pCO2 15.6 L* ABG pO2 133.0 H ABG HCO3 6.5 L Potassium 3.2 L O2 Delivery Device Room air Micro: Microbiology 10/29/23 11:55 Blood Culture - Preliminary Blood SPECIMEN COLLECTED 10/29/23 14:00 Blood Culture - Preliminary Blood SPECIMEN COLLECTED Other data: Outside records from [facility] in [place] were obtained totaling approximately 200 pages with all of the blank pages intermixing with the printed pages totaling 104 from hospital stay in July of this year. I reviewed these records and also attempted to call Dr. Louis Du's office but received voicemail for his nurse. The phone number there is [phone]. A&P Assessment and plan (1) Acute metabolic encephalopathy: Multiple etiologies in play here including severe lactic acidosis, severe electrolyte abnormalities, severe hyperglycemia at presentation with blood sugar in the 20s, hepatic encephalopathy with elevated ammonia level,known history of Wernicke's encephlopathy and the like. Acute inflammatory or infectious process, neurological or vascular event, intoxication also possible. (2) Acute lactic acidosis: Severe lactic acidosis with initial value at 29.9. Differential includes infection/sepsis though currently with stable blood pressure. Has tachycardia which could be secondary to volume depletion and not having chornic beta shalonda on board. Temperature normal. WBC isw elevated. Have to keep in mind impaired immunological response with HIV, but I would expect more hemodynamic instability and end organ damage if infection was root of this elevation alone. Did have low blood sugar initially. Ingestions or medications, renal failure and other metabolic abnormalities also a consideration as described below. Biktarvy can be associated with lactic acidodis but given limited use of this recently seems less likely a current cause. Patient boyfriend indicates no access to alcohol substitutes and was forthcoming in commentary around why question was asked. (3) Metabolic acidosis: High anion gap metabolic acidosis with a delta delta ratio of -0.10 suggesting combination high and normal anion gap metabolic acidosis such as one might see from accommodation of alcoholic starvation ketosis and lactic acidosis. Clincially patient looks quite hypovolemic. Despite recent lack of oral intake serum ketones normal; may be impacted by low overall muscle mass. Some urinary ketosis noted. Renal function currently normal. Albumin slightly low at 3.2. Also in differential is ingestion such as methanol, ethylene or propylene glycol, tolulene, others as noted above. Serum osmolality has been sent out stat; calculated is minimally high at 303. Black light of urine unremarkable in ED. Renal function currently normal. Is making urine. Received 2 liters IVF in ED. Blood cultures collected. (4) Hypoglycemia: Profound hypoglycemia in the 20s at initial presentation. Not a known diabetic. No identified access to oral hypoglycemic agents or insulin. Has not recurred thus far after treatment for low blood sugar in ED. Bacterial infection, lack of alcohol/glucose consumption in encephlopathic state, other medications (only one known that patient has taken last 24 hours is beta shalonda which is a chronic medication and only took as prescribed from information obtained). Less likely causes are tumors or hormonal deficiencies. Critical illness likely cause in this scenario. No reported seizure activity seen. (5) Acute hypokalemia: Initial values 2.2. Not on any diuretic therapy chronically. Review of some old records do indicate prior issues with potassium being low. Some of this may be related to chronic alcohol use and starvation state. Given high blood pressure renal artery stenosis, adrenal axis abnormal abnormalities need to be kept in mind. Given critical illness state and treatments being received currently additional laboratory evaluation for cause limited utility. (6) Facial droop: Noted at the time of my evaluation. Also with difficulty understanding his speech. In talking with his boyfriend the speech abnormalities have progressed over the last week. The facial droop when pointed out sounds like it has been present for couple of days. Presented outside of any window for intervention. Noncontrasted CT of the head with atrophy. No prior history of stroke. Could be related to Broussard's palsy or similar etiology or related to Warnicke Korsakoff syndrome. STOCK PREPARATION OPERATOR infections also within the differential. No other neurological abnormalities reported or identified beyond the generalized weakness mentioned. (7) Alcoholic liver disease: With known chronic elevation in liver enzymes. Patient's Eran indicates he thinks that the total bilirubin was around 4 a couple of months ago. Records received from [facility] in [place] show initial bilirubin at admission in July was 3.6 and at discharge down to 1.9. AST and ALT were 136 and 84 respectively at the time of discharge, alkaline phosphatase was 351 and albumin was 3.2. Currently with increased bilirubin and transaminases, improved alkaline phosphatase and similar albumin level. Has not been consuming as much alcohol as he usually does the last few weeks while he has been away from home. He has associated elevation in INR and hepatic encephalopathy with ammonia level today at 74, significantly higher than ammonia level when he last presented to the hospital in July. He has previously been prescribed rifaximin but is not taking it regularly. (8) Chronic alcoholism: Known chronic alcoholic. Of note blood alcohol level at presentation today was less than 10. No report of any seizure activity. He has previously been told that he has Warnicke's encephalopathy. He also complains chronically of peripheral neuropathy so I suspect that there is a component of Korsakoff as well. Received thiamine in the emergency room and a banana bag. (9) History of pancreatitis: Known to have chronic pancreatitis per review of old records. History of pseudocyst with drainage in 2022. No recent complaints of abdominal pain or changes in bowel movements but has had significant loss of appetite and limited oral intake. Current lipase within normal range at 20. He had imaging of his pancreas in July of this year including CT that showed mild acute on chronic pancreatitis but no peripancreatic fluid collections along with hepatomegaly and severe hepatic steatosis. And n MRCP was also done at [facility] that showed sequela of chronic pancreatitis with mildly dilated irregular main pancreatic and sidebranch ducts to the pancreatic head level with an ill-defined masslike parenchymal fullness similar to appearance from multiple prior exams dating back to early 2021. (10) History of esophageal varices: Possible diagnosis of esophageal varices in the past. It is difficult to understand Mr. Meek. His partner Don does not recall any significant bleeding episodes. He is chronically on a PPI. No recent blood in his stools or black tarry stools or any hematemesis/coffee-ground emesis described. (11) Macrocytic anemia: Secondary to B12/folate deficiency. Last available comparative hemoglobin from outside records was 9.6. No reports of active bleeding. (12) Hypertension: Primary hypertension chronically prescribed amlodipine and metoprolol. Currently with significant elevations particularly in diastolic pressures. Alcohol withdrawal could be contributing to higher readings currently. Given facial droop and speech abnormalities some degree of permissive hypertension currently. He had been taking metoprolol though not consistently amlodipine in the outpatient setting. (13) Human immunodeficiency virus: Chronic diagnosis. Last CD4 count or viral load unknown. Is prescribed Biktarvy but for the last few months has only taken it a couple of times. Not chronically on any prophylactic antibiotics. He had an infection in his esophagus in July of this year for which she was treated with Diflucan. Also empirically received Levaquin after that hospital stay. I suspect from description that he had esophageal candidiasis though did not find any specific indication of this in what I was able to review of outside records. Has not had any other AIDS defining illnesses that partner is aware of. His presentation today is confounded by this diagnosis to a degree. Comorbid chronic alcohol use, alcoholic liver disease, known alcoholic encephalopathy/Warnicke's and likely Korsakoff components among other diagnoses are more likely the cause of current presentation but opportunistic infections seen in severely immunocompromised remain in the differential diagnosis for his overall presentation as well. (14) Nicotine dependence: Smokes cigarettes and cigars. Not known to have chronic lung disease/uncomplicated. (15) Moderate protein-calorie malnutrition: if not severe, present on admission. Risk of refeeding with oral intake. Plan Inpatient admission ICU level care Change IV fluids to normal saline with potassium Orozco catheter for close monitoring of urine output in this critically ill patient Received bicarb in the emergency room for initial low pH of 7.08 Serial laboratory studies are ordered Adjust IV fluids and electrolyte replacement as indicated based on above Monitor blood sugars for recurrent hypoglycemia Hypoglycemia protocol as indicated Avoiding insulin therapy currently for elevation in blood sugars given profoundly low blood sugars at presentation though will need to monitor for for continued issues with hyperglycemia Will repeat lactic acid level in the morning Empiric antibiotic therapy to include vancomycin, Rocephin and Diflucan Blood cultures have been collected Stat CD4 count and HIV viral load have been requested Stat serum osmolality has been ordered Send outs for methyl alcohol ordered but if memory serves me correctly these do not come back for several weeks Serial neuroexams Noncontrasted CT of the head did not show any acute abnormalities though atrophy was apparent Check lipid panel in the morning INR was elevated PT and OT evaluations when medically stable CIWA protocol Status post banana bag ordered from the emergency room Will continue daily multivitamin with thiamine and folate Acute hepatitis panel is pending Lactulose is ordered, can consider addition of rifaximin also but he has not been taking it at home as prescribed Will need to monitor for refeeding syndrome with resumption of oral intake Monitor for signs of bleeding Will check TIBC and Hemoccult Permissive hypertension initially given potentially new neurologic findings of dysarthria and left-sided facial droop Will resume beta-blockade with metoprolol's tartrate 25 twice daily rather than prescribed 50 mg succinate Holding home amlodipine currently though can consider resuming if indicated Not continuing listed home medications of baclofen, ibuprofen, tramadol Will add nicotine patch if needed VTE prophylaxis: SCDs only currently given possible history of esophageal varices, anemia at presentation and high volume of fluid administration. Risk of bleeding and potential current need for transfusion pending repeat hemoglobin levels after fluids GI Prophylaxis: PPI Antibiotics: Empiric coverage with vancomycin, Rocephin and Diflucan in this patient with known HIV, esophageal candidiasis in July of this year, not taking antiretroviral therapy, unknown CD4 level and current mental status changes Pending studies: Ordered from the ED include: serum osmolality, methyl alcohol level, blood cultures, 6-hour troponin and BNP other studies. Ordered by me include CD4 and HIV viral load, acute hepatitis panel, repeat ammonia level, repeat lactic acid level, repeat CK level, repeat ABGs, lipid panel, TSH, A1c and TIBC along with immuno Hemoccult Telemetry: Currently in place for monitoring of critically ill patient Orozco: Currently in place to monitor urine output closely given multiple metabolic abnormalities and critical nature of presentation Line(s): Central line right IJ placed 10/29/2023 in ED Disposition plan: Home in the care of his boyfriend José with outpatient follow up to his primary care provider Dr. Du in [place] Code Status: Full Code Supportive care otherwise Findings, concerns and plans were discussed with patient to the extent that he can understand as well as with his partner José and they were given an opportunity to ask questions. Patient does have a daughter whom Don can contact if needed. Mr. Meek does not have a DURABLE POWER OF PHYSICAL METEOROLOGIST for healthcare or healthcare proxy but has indicated done can make decisions for him currently. Attestations 2 Medical Necessity Statement*: Anticipated stay greater than 2 midnights in this patient with critical abnormalities as outlined above requiring ICU level care, frequent lab draws, IV fluids and other care as described. At high risk of rapid clinical decline up to and including possibility of without critical care management at this time. Diagnoses Acute metabolic encephalopathy G93.41 Acute lactic acidosis E87.21 Metabolic acidosis E87.20 Hypoglycemia E16.2 Acute hypokalemia E87.6 Facial droop R29.810 Alcoholic liver disease K70.9 Chronic alcoholism F10.20 History of pancreatitis Z87.19 History of esophageal varices Z87.19 Macrocytic anemia D53.9 Hypertension I10 Human immunodeficiency virus B20 Nicotine dependence F17.200 Moderate protein-calorie malnutrition E44.0
[2023-10-29 15:32] LABS: Lactic Acid level (Lactate) 27.8 mmol/L (0.5-2.2)
[2023-10-29] MEDS: folic acid 1 MG, multivitamin inj 10 ML, thiamine 100 MG in sodium chloride 0.9% 1,000 ML 252.800000000000011 MG IV (15:37)
[2023-10-29] MEDS: thiamine 100 mg Tablet PO (15:37)
[2023-10-29] MEDS: multivitamin therapeutic Tablet 1 TAB PO (15:37)
[2023-10-29] MEDS: folic acid 1 mg Tablet PO (15:37)
[2023-10-29] MEDS: sodium chloride 0.9% 1,000 ML 200 ML IV (15:38)
[2023-10-29 15:39] LABS: ABG PH Result 7.23 (7.35-7.45); Arterial Blood Gas Hematocrit 30.3 % (42-52); Base Excess ABG -18.9 mmol/L (-2.0-2.0); Blood Gas Allen Test Pos; Blood Gas Operator Identificat GD; Blood Gas Sample Site Radial, right; Blood Gas Sample Type Arterial; Carboxyhemoglobin 0.9 %THgb (0.4-20.1); HCO3 ABG 6.5 mmol/L (22-26); HGB O2 Sat 97.3 % (95-100); Methemoglobin 0.9 % (0.4-1.5); Oxygen Device ROOM AIR; PO2 FiO2 Ratio Arterial Blood 0; Potassium Level - ABG 3.2 mmol/L (3.5-5.0); Total Hemoglobin 9.9 g/dL (14-18)
[2023-10-29] MEDS: metoprolol tartrate 1 mg/1 mL SDV 5 mL 5 MG IVP ×2 (16:04→20:59)
[2023-10-29] MEDS: pantoprazole 40 mg SDV IVP (16:04)
[2023-10-29 17:20] LABS: ABG PCO2 15.6 mmHg (35-45)
[2023-10-29] MEDS: fluconazole premix 200 MG/100 ML PREMIX 100 MG IV (17:56)
[2023-10-29] MEDS: cefTRIAXone 1,000 MG in sodium chloride 0.9% (plus) 50 ML 100 MG IV (17:56)
[2023-10-29] MEDS: sodium chlor 0.9% + KCl 20 mEq 20 MEQ/1,000 ML BAG 150 MEQ IV (17:59)
[2023-10-29] MEDS: lactulose oral liq 20 gm/30 mL UDC 30 GM PO (17:59)
[2023-10-29] MEDS: vancomycin 1,000 MG in sodium chloride 0.9% 250 ML 250 MG IV (18:01)
--- NOTE | 2023-10-29 18:13 | ECG_ITS ---
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 Measurements Intervals [place] Rate: 100 P: 61 [place]: 146 QRS: 56 QRSD: 98 T: 54 QT: 414 QTc: 534 Interpretive Statements SINUS TACHYCARDIA VOLTAGE CRITERIA FOR LVH [MEETS CRITERIA IN ONE OF: R(aVL), S(V1), R(V5), R(V5/V6)+S(V1)] NONSPECIFIC T-WAVE ABNORMALITY Compared to ECG 10/29/2023 14:04:22 Left ventricular hypertrophy now present Possible ischemia no longer present T-wave abnormality still present Electronically Signed On 10-29-2023 23:23:50 CDT by Delfino Cardenas M.D. [id number]
[2023-10-29 19:15] LABS: Eosinophils % 0.1 %; Hematocrit 25.2 % (37-53); Lymphocytes # 0.6 10^3/uL (0.8-4.8); Lymphocytes % 6.1 %; Mean Corpuscular HGB Conc 35.3 g/dL (30-55); Mean Corpuscular Hemoglobin 37.2 pg (27-33); Mean Corpuscular Volume 105.4 fl (82-101); Mean Platelet Volume 12.2 fL (7.4-10.4); Monocytes # 0.4 10^3/uL (0.2-0.9); Monocytes % 3.9 %; Neutrophils # 8.66 10^3/uL (1.8-7.7); Neutrophils % 89.4 %; Nucleated Red Blood Cells % 0 %; Platelet Count 151 10^3/cmm (157-399); Red Blood Count 2.39 10^6/uL (3.85-5.65); White Blood Count 9.69 10^3/uL (3.29-11.43)
[2023-10-29 19:28] LABS: Glucose Point of Care 285 mg/dL (70-110)
[2023-10-29 19:31] LABS: Troponin 5 6HR 34.23 ng/L (0-15)
[2023-10-29 19:34] LABS: Troponin 5 6HR Delta 22.23 ng/L (0-12)
[2023-10-29 19:35] LABS: Anion Gap 30.3 (5-19); Blood Urea Nitrogen 9 mg/dL (6-20); Calcium 7.6 mg/dL (8.5-10.5); Carbon Dioxide 12 mmol/L (22-29); Chloride 104 mmol/L (98-107); Creatinine Clr Calc Pharmacy 107.0164; Glomerular Filtration Rate 146.9 mL/min (90-130); Glucose 260 mg/dL (65-115); Lipase 34 U/L (13-60); Magnesium 1.5 mg/dL (1.7-2.3); Osmolality Calculated 304 mOsm/kg (285-295); Phosphorus 1.5 mg/dL (2.5-4.5); Potassium 3.3 mmol/L (3.5-5.1); Sodium 143 mmol/L (136-145)
[2023-10-29] MEDS: lactulose oral liq 20 gm/30 mL UDC PO (20:59)
[2023-10-29 21:08] LABS: Hepatitis A Antibody IgM Non-Reactive (Nonreactive); Hepatitis B Core IgM Non-Reactive (Nonreactive); Hepatitis B Surface Antigen Non-Reactive (Nonreactive); Hepatitis C Virus Antibody Non-Reactive (Nonreactive)
[2023-10-30] VITALS (29 sets, daily range): BP systolic 121–159; BP diastolic 73–133; PULSE 56–90; RESP 9–22; TEMP 36.5–36.8; O2SAT 94–100
[2023-10-30 00:01] LABS: Glucose Point of Care 237 mg/dL (70-110)
[2023-10-30] MEDS: sodium chlor 0.9% + KCl 20 mEq 20 MEQ/1,000 ML BAG 150 MEQ IV ×2 (01:04→08:24)
[2023-10-30 02:55] LABS: ABG PCO2 39.6 mmHg (35-45); ABG PH Result 7.43 (7.35-7.45); Arterial Blood Gas Hematocrit 26.5 % (42-52); Blood Gas Allen Test Pos; Blood Gas Sample Site Brachial, left; Blood Gas Sample Type Arterial; HCO3 ABG 26.5 mmol/L (22-26); Oxygen Device ROOM AIR; PO2 ABG 87.5 mmHg (80.0-100.0); PO2 FiO2 Ratio Arterial Blood 0
[2023-10-30] MEDS: metoprolol tartrate 1 mg/1 mL SDV 5 mL 5 MG IVP (02:55)
[2023-10-30 05:17] LABS: Basophils % 0.1 %; Hematocrit 22.7 % (37-53); Lymphocytes # 1.1 10^3/uL (0.8-4.8); Lymphocytes % 14.6 %; Mean Corpuscular HGB Conc 36.1 g/dL (30-55); Mean Corpuscular Hemoglobin 36.8 pg (27-33); Mean Corpuscular Volume 101.8 fl (82-101); Mean Platelet Volume 11.7 fL (7.4-10.4); Monocytes # 0.4 10^3/uL (0.2-0.9); Monocytes % 4.8 %; Neutrophils # 5.99 10^3/uL (1.8-7.7); Neutrophils % 80.1 %; Nucleated Red Blood Cells % 0.3 %; Platelet Count 146 10^3/cmm (157-399); Red Blood Count 2.23 10^6/uL (3.85-5.65); Red Cell Distribution Width 13.6 % (12.1-15.1); White Blood Count 7.48 10^3/uL (3.29-11.43)
[2023-10-30 05:39] LABS: Lactate (Lactic Acid level) 1.5 mmol/L (0.5-2.2)
[2023-10-30 05:40] LABS: Ammonia 56 umol/L (16-60)
[2023-10-30 05:50] LABS: Alanine Aminotransferase 67 U/L (0-41); Albumin Level 2.6 g/dL (3.5-5.2); Alkaline Phosphatase 200 U/L (40-130); Anion Gap 10.4 (5-19); Aspartate Amino Transferase 300 U/L (0-40); Blood Urea Nitrogen 11 mg/dL (6-20); Calcium 7.7 mg/dL (8.5-10.5); Carbon Dioxide 26 mmol/L (22-29); Chloride 113 mmol/L (98-107); Creatinine Clr Calc Pharmacy 187.2787; Globulin 3.1 g/dL (1.3-4.6); Glomerular Filtration Rate 280.2 mL/min (90-130); Glucose 118 mg/dL (65-115); Magnesium 1.7 mg/dL (1.7-2.3); Osmolality Calculated 302 mOsm/kg (285-295); Potassium 3.4 mmol/L (3.5-5.1); Sodium 146 mmol/L (136-145); Thyroid Stimulating Hormone 0.03 uIU/mL (0.27-4.20); Total Bilirubin 3.4 mg/dL (0.15-1.2); Total Protein 5.7 g/dL (6.6-8.7)
[2023-10-30 05:51] LABS: Chol HDL Ratio 7.86 mg/dL (1.0-5.00); Cholesterol 110 mg/dL (0-200); Creatine Phosphokinase 38 U/L (39-308); HDL Cholesterol 14 mg/dL (60-100); Iron 110 ug/dL (59-158); LDL Cholesterol Calculated 78 mg/dL (50-129); LDL HDL Ratio 5.57 RATIO (0.00-3.22); NT Pro B Type Natriuretic Pept 2430 pg/mL (0-125); Triglycerides 89 mg/dL (0-150); Uric Acid 6.5 mg/dL (3.4-7.0)
[2023-10-30] MEDS: vancomycin 1,000 MG in sodium chloride 0.9% 250 ML 250 MG IV ×2 (06:04→17:20)
[2023-10-30 06:13] LABS: Percent Saturation 86.6 % (20-50); Total Iron Binding Capacity 127 mcg/dl; Unsaturated Iron Binding < 17 ug/dL (112-347)
[2023-10-30 06:17] LABS: Phosphorus 0.3 mg/dL (2.5-4.5)
[2023-10-30] MEDS: potassium phosphate (mEq K) 40 MEQ in sodium chloride 0.9% (100 ml) 100 ML 27.2699999999999996 MEQ IV ×2 (07:31→14:00)
[2023-10-30 08:11] LABS: Glucose Point of Care 153 mg/dL (70-110)
[2023-10-30] MEDS: lactulose oral liq 20 gm/30 mL UDC PO (08:23)
[2023-10-30] MEDS: metoprolol tartrate 25 mg Tablet PO ×2 (08:23→20:10)
[2023-10-30] MEDS: thiamine 100 mg Tablet PO (08:23)
[2023-10-30] MEDS: folic acid 1 mg Tablet PO (08:24)
[2023-10-30] MEDS: MULTIVITAMIN PO (09:25)
[2023-10-30 10:40] LABS: Estmated Average Glucose 85; Hemoglobin A1C 4.6 % (4.0-6.0)
[2023-10-30 10:55] LABS: Glucose Point of Care 110 mg/dL (70-110)
[2023-10-30] MEDS: magnesium sulfate premix 2 GM/50 ML PIGGYBACK IV (14:00)
[2023-10-30] MEDS: lactated ringers 1,000 ML 100 ML IV (14:01)
[2023-10-30 14:14] LABS: Osmolality Serum 327 mOsm/kg (278-305)
[2023-10-30] MEDS: cefTRIAXone 1,000 MG in sodium chloride 0.9% (plus) 50 ML 100 MG IV (16:37)
[2023-10-30] MEDS: pantoprazole 40 mg SDV IVP (16:37)
[2023-10-30 16:54] LABS: Glucose Point of Care 247 mg/dL (70-110)
[2023-10-30] MEDS: fluconazole premix 100 MG in empty flexible container 1 EACH 50 MG IV (17:20)
--- NOTE | 2023-10-30 21:31 | P.PN_ITS ---
Subjective 2 Subjective: He is feeling slightly better today. Having some aching including in his legs. Was vomiting yesterday but no additional vomiting today. No abdominal pain. Vitals/I&O/Wt Last Vital Signs Temp 98.0 F 10/30/23 20:00 Pulse 86 10/30/23 20:00 Resp 18 10/30/23 20:00 BP 148/90 10/30/23 20:00 Pulse Ox 94 10/30/23 20:00 O2 Del Method Room Air 10/30/23 20:00 10/30/23 10/30/23 10/30/23 06:59 14:59 22:59 Intake Total 1000 / 5403.567 1508.5106 / 1508.5106 2140.1776 / 3648.6882 Output Total 1020 / 2790 450 / 450 950 / 1400 Balance -20 / 2613.567 1058.5106 / 1058.5106 1190.1776 / 2248.6882 Weight last 48 hrs Weight 55.973 kg Weight 55.973 kg Weight 57.379 kg Weight 63.503 kg Physical Exam 2 Narrative: Awake, reclined in bed. Const: COMMON NORMALS: patient oriented x3 and alert GENERAL APPEARANCE: c ooperative ORIENTATION/CONSCIOUSNESS: Yes awake HENMT: COMMON NORMALS: oropharynx normal Neck/C-Spine: COMMON NORMALS: no JVD Resp: COMMON NORMALS: normal respiratory effort and clear to auscultation bilaterally AUSCULTATION: clear to auscultation bilaterally Cardio: COMMON NORMALS: no JVD, regular rhythm, S1 normal heart sound present, S2 normal heart sound present and No murmurs present (Cardio) RHYTHM: regular rhythm HEART SOUNDS: S1 normal heart sound present and S2 normal heart sound present GI: COMMON NORMALS: Normal to inspection, nondistended, normoactive bowel sounds present, Soft to palpation and non-tender PALPATION: Yes Soft to palpation Extremity: COMMON NORMALS: no joint enlargement and no pedal edema Neuro: COMMON NORMALS: patient oriented x3 and moves all extremities S ENSORIUM/ORIENTATION: Yes alert Skin: COMMON NORMALS: no rashes or lesions noted GENERAL SKIN EXAM: no rashes or lesions noted Urinary Catheter Management: Orozco: Cath Placed During This Visit: yes Reason for Continuing Indwelling Catheter: Accurate Measurement of Urinary Output in Critically Ill Patients Urinary Catheter Date of Insertion: 10/29/23 Urinary Catheter Time of Insertion: 13:27 Data 10/30/23 04:56 10/30/23 04:56 Micro: Microbiology 10/29/23 14:00 Blood Culture - Preliminary Blood NEGATIVE TO DATE 10/29/23 11:55 Blood Culture - Preliminary Blood NEGATIVE TO DATE 10/29/23 22:25 Occult Blood (FIT) - Final Stool Routine Collection A&P Assessment and plan (1) Acute metabolic encephalopathy: Improved. He is awake and alert today. Reviewed vitals, CBC, ABG, CMP, lactate. Still noted severe hypophosphatemia, hypomagnesemia with hypokalemia. Requested replacement. Will discontinue ceftriaxone, vancomycin, fluconazole. Reassess condition, mental status. Multiple etiologies in play here including severe lactic acidosis, severe electrolyte abnormalities, severe hyperglycemia at presentation with blood sugar in the 20s, hepatic encephalopathy with elevated ammonia level,known history of Wernicke's encephlopathy and the like. Acute inflammatory or infectious process, neurological or vascular event, intoxication also possible. Continue care on medical floor. Discussed with correctional counselor/case manager. (2) Acute lactic acidosis: Continue IV hydration for now until stable oral intake resumed. Monitor for risk of fluid overload. Fluids changed to LR at 100 mill per hour. Severe lactic acidosis. He states he has been taking his HIV medications. Discussed with him severe lactic acidosis may be associated with Biktarvy. This necessitated interruption of therapy. He states he follows with ID specialist Dr. Louis Du in [place], and has and will be following up with him as soon as he returns back there. He is visiting in [facility], intends to return back after discharging from the hospital. Discussed with him to discuss regarding severe lactic acidosis, concern for possible relation to Biktarvy, consideration of alternative therapy management. He verbalized understanding and agreement. Additionally discussed with him acute liver injury, possibly acute hepatitis, reviewed transaminases, AST 300, ALT 67. Encouraged him to abstain from any alcohol given risk of liver damage, hepatitis, acute liver failure. He verbalized understanding. (3) Metabolic acidosis: Reviewed bicarb, anion gap, acidosis with improvement. Severe metabolic acidosis secondary to severe lactic acidosis, suspected secondary to Biktarvy recommendation with liver dysfunction/hepatitis. Negative viral hepatitis panel. Holding Biktarvy. Discussed with him to abstain from any alcohol. Can transfer to medical surgical floor. Will reassess chemistry, electrolytes. (4) Hypoglycemia: Possibly secondary to acute liver dysfunction, acute hepatitis. Hypoglycemia improved. Reviewed POC glucose. (5) Acute hypokalemia: Given additional replacement. Replace hypomagnesemia. (6) Facial droop: This appears to have improved with improvement in mental status. Possibly related to severe electrolyte abnormalities, metabolic acidosis. Reassess. Per his boyfriend the speech abnormalities have progressed over the last week. The facial droop when pointed out sounds like it has been present for couple of days. Presented outside of any window for intervention. Noncontrasted CT of the head with atrophy. No prior history of stroke. Could be related to Broussard's palsy or similar etiology or related to Warnicke Korsakoff syndrome. ANVILSMITH infections also within the differential. No other neurological abnormalities reported or identified beyond the generalized weakness mentioned. (7) Alcoholic liver disease: Acute liver injury, acute hepatitis. Denies any significant Tylenol use. Occasionally does use some ibuprofen. Discussed with him not to use any NSAIDs. Additionally discussed to abstain from any alcohol. Reassess liver parameters. (8) Chronic alcoholism: Known chronic alcoholic. Encourage abstinence. Continue thiamine, folic acid , multivitamin. (9) History of pancreatitis: Known to have chronic pancreatitis per review of old records. History of pseudocyst with drainage in 2022. No recent complaints of abdominal pain or changes in bowel movements but has had significant loss of appetite and limited oral intake. Current lipase within normal range at 20. He had imaging of his pancreas in July of this year including CT that showed mild acute on chronic pancreatitis but no peripancreatic fluid collections along with hepatomegaly and severe hepatic steatosis. And n MRCP was also done at [facility] that showed sequela of chronic pancreatitis with mildly dilated irregular main pancreatic and sidebranch ducts to the pancreatic head level with an ill-defined masslike parenchymal fullness similar to appearance from multiple prior exams dating back to early 2021. (10) History of esophageal varices: Continue PPI. Possible diagnosis of esophageal varices in the past. It is difficult to understand Mr. Meek. His partner Don does not recall any significant bleeding episodes. He is chronically on a PPI. No recent blood in his stools or black tarry stools or any hematemesis/coffee-ground emesis described. (11) Macrocytic anemia: Check B12 Secondary to B12/folate deficiency. Last available comparative hemoglobin from outside records was 9.6. No reports of active bleeding. (12) Hypertension: Primary hypertension chronically prescribed amlodipine and metoprolol. Currently with significant elevations particularly in diastolic pressures. Alcohol withdrawal could be contributing to higher readings currently. Given facial droop and speech abnormalities some degree of permissive hypertension currently. He had been taking metoprolol though not consistently amlodipine in the outpatient setting. (13) Human immunodeficiency virus: Hold Biktarvy. HIV/CD4 studies pending. Follows with Dr. Du in [place]. Understands lactic acidosis may have been caused by his medication, understands to hold it at current time, follow-up with HIV specialist to discuss alternatives. (14) Nicotine dependence: Smokes cigarettes and cigars. Not known to have chronic lung disease/uncomplicated. (15) Moderate protein-calorie malnutrition: Resume oral diet. GI soft. Discussed with nurse or dietitian. Supplements added with med Pass 2.0 twice daily. if not severe, present on admission. Risk of refeeding with oral intake. Plan Elevated transferrin saturation: Reported as 86%. Unclear whether this may be spurious value, possibly affected by liver dysfunction, otherwise may be concerning for hemochromatosis. This will need to to be repeated and follow-up once his liver dysfunction returns to baseline. Attestations 2 Medical Necessity Statement*: Continue admission for assessment management of severe acidosis, severe hypophosphatemia as well as hypomagnesemia, hypokalemia, and With underlying HIV, with acute hepatitis. Diagnoses Acute metabolic encephalopathy G93.41 Acute lactic acidosis E87.21 Metabolic acidosis E87.20 Hypoglycemia E16.2 Acute hypokalemia E87.6 Facial droop R29.810 Alcoholic liver disease K70.9 Chronic alcoholism F10.20 History of pancreatitis Z87.19 History of esophageal varices Z87.19 Macrocytic anemia D53.9 Hypertension I10 Human immunodeficiency virus B20 Nicotine dependence F17.200 Moderate protein-calorie malnutrition E44.0
[2023-10-30 22:50] LABS: Glucose Point of Care 196 mg/dL (70-110)
[2023-10-31] VITALS (7 sets, daily range): BP systolic 132–150; BP diastolic 78–94; PULSE 63–78; RESP 14–18; TEMP 36.4–37.1; O2SAT 97–100
[2023-10-31] MEDS: lactated ringers 1,000 ML 100 ML IV ×2 (00:09→09:00)
--- NOTE | 2023-10-31 02:43 | PC.NURSE ---
Transfer to [place]: Transferred to [place] via wheelchair @[id number]. Asked pt if he wanted us to call his family to notify of room change, pt states he will text them.
[2023-10-31 05:39] LABS: Basophils % 0.4 %; Hematocrit 25.5 % (37-53); Lymphocytes # 1.3 10^3/uL (0.8-4.8); Lymphocytes % 26.6 %; Mean Corpuscular HGB Conc 35.7 g/dL (30-55); Mean Corpuscular Hemoglobin 35.8 pg (27-33); Mean Corpuscular Volume 100.4 fl (82-101); Mean Platelet Volume 12.2 fL (7.4-10.4); Monocytes # 0.2 10^3/uL (0.2-0.9); Monocytes % 3.8 %; Neutrophils # 3.48 10^3/uL (1.8-7.7); Nucleated Red Blood Cells % 0.4 %; Platelet Count 122 10^3/cmm (157-399); Red Blood Count 2.54 10^6/uL (3.85-5.65); Red Cell Distribution Width 14.3 % (12.1-15.1); White Blood Count 5.04 10^3/uL (3.29-11.43)
[2023-10-31 05:56] LABS: Alanine Aminotransferase 136 U/L (0-41); Albumin Level 2.8 g/dL (3.5-5.2); Alkaline Phosphatase 276 U/L (40-130); Anion Gap 12.2 (5-19); Aspartate Amino Transferase 443 U/L (0-40); Blood Urea Nitrogen 4 mg/dL (6-20); Calcium 8.7 mg/dL (8.5-10.5); Carbon Dioxide 28 mmol/L (22-29); Chloride 102 mmol/L (98-107); Creatinine Clr Calc Pharmacy 182.6897; Globulin 3.6 g/dL (1.3-4.6); Glomerular Filtration Rate 280.2 mL/min (90-130); Glucose 130 mg/dL (65-115); Osmolality Calculated 287 mOsm/kg (285-295); Potassium 3.2 mmol/L (3.5-5.1); Sodium 139 mmol/L (136-145); Total Bilirubin 2.5 mg/dL (0.15-1.2); Total Protein 6.4 g/dL (6.6-8.7)
[2023-10-31 06:15] LABS: Vitamin B12 1304 pg/mL (232-1245)
[2023-10-31 06:26] LABS: Glucose Point of Care 154 mg/dL (70-110)
[2023-10-31] MEDS: MULTIVITAMIN PO (08:59)
[2023-10-31] MEDS: metoprolol tartrate 25 mg Tablet PO (08:59)
[2023-10-31] MEDS: thiamine 100 mg Tablet PO (08:59)
[2023-10-31] MEDS: folic acid 1 mg Tablet PO (08:59)
--- NOTE | 2023-10-31 09:56 | PM.DCS ---
Discharge Providers Date of Admission: 10/29/23 13:07 Date of Discharge: October 31, 2023 Attending Provider at Admission: Annamarie Zheng MD Attending Provider at Discharge: Bam Giles Diagnoses at Discharge Discharge Diagnosis (1) Acute metabolic encephalopathy: Status: Acute (2) Acute lactic acidosis: Status: Acute (3) Metabolic acidosis: Status: Acute (4) Hypoglycemia: Status: Acute (5) Acute hypokalemia: Status: Acute (6) Facial droop: Status: Acute (7) Alcoholic liver disease: Status: Chronic (8) Chronic alcoholism: Status: Chronic (9) History of pancreatitis: Status: Acute Permanent problem details: chronic and intermittent acute (10) History of esophageal varices: Status: Acute Permanent problem details: possible historical diagnosis (11) Macrocytic anemia: Status: Acute (12) Hypertension: Status: Chronic (13) Human immunodeficiency virus: Status: Chronic Permanent problem details: prescribed antiviral therapy but not consistently taken (14) Nicotine dependence: Status: Acute (15) Moderate protein-calorie malnutrition: Status: Acute Reason for Visit Reason for Visit: Hypoglycemic Brief History: Jack Meek is a 48 year old male who presented to the emergency room via EMS with a chief complaint of decreased responsiveness. Patient is from [facility] and was here locally visiting. His boyfriend José is with him and has provided his care for the last few weeks. José can be reached at [phone]. At baseline patient has a history of chronic alcohol use with associated alcoholic liver disease. He has had episodes of pancreatitis with the most recent hospitalization being at [facility] in [facility]. Last year he had a pancreatic cyst that required drainage. He is known to be HIV positive. He has been prescribed antiretroviral therapy but over the last few months he is only taking it a couple of times. He has a history of hypertension. Over the last few weeks while Mr. Meek and José had been traveling, he has had a gradual continued decline in his overall condition with increasing weakness, episodes of confusion, difficulty with his speech over the last week. No report of any fevers, abdominal pain, changes in bowel or bladder function, cough or upper respiratory symptoms. He has not really had much in the way of solid food at all for the last couple of weeks and has not wanted to consume much liquid. José has been buying vodka intermittently to help avoid any alcohol withdrawal symptoms while they have been traveling. He has no personal history of delirium tremens but has had some alcohol withdrawal symptoms in the past. Today he was minimally responsive leading Don to call EMS who brought him in. Prior to today patient had refused consideration for acute hospital care/evaluation despite José's urging. Mr. Meek has been found to have multiple critical labs. Initial blood sugar was in the 20s. He received an amp of D50 and some IV fluids were started immediately. Blood sugar subsequently increased into the several 100s. Initial ABG showed 7.08/12/117/3.6 on room air. Initial lactic acid was 29.9. Vital signs on arrival showed heart rate of 128, blood pressure 180/126, respirations of 24 and room air saturations of 100%. Patient has no known history of diabetes and no access to any oral hypoglycemic agents. He has not had any access to anything except that which José has given him. José denies any moonshine or other form of homemade alcohol, antifreeze there are other sources of ethylene glycol. Jack has only consumed intermittent vodka and water or other drinks intended for human consumption from available information. I was able to get some records from [facility] in [facility]. He had a similar presentation in July of this year though at that point in time I had acute renal failure in addition to hypokalemia. Degree of acidosis not as severe with lactic acid at 10. Ammonia level then was only 46. He received primarily IV fluids, electrolyte replacement, antibiotic therapies which also included rifaximin. Notes indicate significant improvement with IV fluid hydration alone. He had been doing okay after that hospital stay until the last few weeks. With multiple critical abnormalities, patient is being admitted to the intensive care unit for further care and evaluation. History is obtained from patient's boyfriend José who is here as well as supplemented by the patient himself. Mr. Meek speech is difficult to understand at times. Hospital Course Hospital Course Head CT was unremarkable. With resuscitation his lactic acidosis resolved. Mental status improved. Facial droop resolved. Transaminitis initially plateaued and subsequently showing mild improvement, concern for acute hepatitis, possibly alcohol-related, versus related to Biktarvy or combination. Hypoglycemia resolved. Received replacement for hypokalemia, hypomagnesemia, hypophosphatemia. Viral hepatitis panel negative. AST to ALT in 2-1 pattern, possibly supporting alcohol induced hepatitis. Microcytic anemia, thrombocytopenia, B12 level normal. Continued on thiamine, folic acid, multivitamin supplementation. HIV studies within viral load, CD4 have been sent out. He was seen by registered dietitian with regards to protein calorie malnutrition, protein supplements were added. Initially on empiric antibiotics, these were discontinued last night and did well without them, without signs of infection, afebrile, without leukocytosis, tachycardia or other SIRS criteria. With improvement in mental status we had several extensive discussions regarding alcohol avoidance and risk of additional hepatitis, other acute and chronic liver injury, which possibly precipitated lactic acidosis related to Biktarvy. He states that he has been taking his HIV medication. Discussed with him to stop Biktarvy at current time and he intends to be returning to [place] shortly after discharge from the hospital and follow-up with his infectious disease specialist to discuss alternative HIV agents given severe lactic acidosis. Additionally counseled on smoking cessation. Continue to encourage abstinence from both. Discussed with major case detective to see if can be provided with some resources regarding rehabilitation in [place]. During hospitalization secondary to anemia additionally had iron studies assessed, not deficient in iron, but does have transferrin saturation level significantly elevated at 86. Discussed with him. This may be related to the acute liver dysfunction/hepatitis, however, discussed with him will need to be rechecked with primary care provider alongside with reassessment of liver function, and if not improving will need additional assessment for possible iron overload, possible hemochromatosis, with discussed risk of chronic progressive liver disease, cirrhosis. Again counseled on avoiding any alcohol. Additionally he had been taking ibuprofen, counseled on avoiding any NSAIDs. He verbalized understanding and agreement, understanding the potential associated adverse effects. He additionally knows and intends to follow-up with primary care provider for reassessment of anemia, thrombocytopenia. During hospitalization additionally found to have low TSH, 0.03, suspected secondary to acute illness, and understands the need to follow-up and reassess thyroid studies on visit with primary care provider. Physical Exam Const: COMMON NORMALS: patient oriented x3 and alert GENERAL APPEARANCE: cooperative ORIENTATION/CONSCIOUSNESS: Yes awake HENMT: COMMON NORMALS: oropharynx normal Neck/C-Spine: COMMON NORMALS: no JVD Resp: COMMON NORMALS: normal respiratory effort and clear to auscultation bilaterally AUSCULTATION: clear to auscultation bilaterally Cardio: COMMON NORMALS: no JVD, regular rhythm, S1 normal heart sound present, S2 normal heart sound present and No murmurs present (Cardio) RHYTHM: regular rhythm HEART SOUNDS: S1 normal heart sound present and S2 normal heart sound present GI: COMMON NORMALS: Normal to inspection, nondistended, normoactive bowel sounds present, Soft to palpation and non-tender PALPATION: Yes Soft to palpation Extremity: COMMON NORMALS: no joint enlargement and no pedal edema Neuro: COMMON NORMALS: patient oriented x3 and moves all extremities SENSORIUM/ORIENTATION: Yes alert Skin: COMMON NORMALS: no rashes or lesions noted GENERAL SKIN EXAM: no rashes or lesions noted Urinary Catheter Management: Orozco: Cath Placed During This Visit: yes Reason for Continuing Indwelling Catheter: Other Urinary Catheter Date of Insertion: 10/29/23 Urinary Catheter Time of Insertion: 13:27 Discharge Data Studies Completed and Pending Completed Studies During Hospitalization Category Date Time Status CT head wo con* [id number] Stat Cat Scan 10/29/23 13:25 Completed XR chest 1V portable [id number] Stat Exams 10/29/23 12:02 Completed Pending at discharge Category Date Time Status Blood Culture Stat Lab 10/29/23 11:55 Results Complete Blood Count w/Auto AM LABS Lab 11/01/23 04:00 Ordered Complete Blood Count w/Auto AM LABS Lab 11/02/23 04:00 Ordered Comprehensive Metabolic Panel AM LABS Lab 11/01/23 04:00 Ordered Comprehensive Metabolic Panel AM LABS Lab 11/02/23 04:00 Ordered HIV RNA (PCR) Quant Stat Lab 10/29/23 15:05 Received Lymphocyte Subset Panel 4 Stat Lab 10/29/23 15:05 Received Magnesium Routine Lab 10/31/23 09:49 Ordered Methyl Alcohol, Quant Stat Lab 10/29/23 11:55 Received Phosphorus Routine Lab 10/31/23 09:49 Ordered Radiology Impressions Chest X-Ray 10/29/23 12:02 IMPRESSION: 1. A right IJ CVC tip is in the right atrium. The proximal end is not visualized and I question disruption. 2. No acute cardiopulmonary abnormality. ADDENDUM: 10/29/23 2542 The appearance of the proximal end of the right IJ CVC was discussed with Dr. Cotto. The reservoir is radiolucent on this image due to the patient's diminished body fat and the reservoir projecting above the patient's shoulder. This CVC is intact. Head CT 10/29/23 13:25 IMPRESSION: 1. No acute intracranial hemorrhage or edema. 2. Mild cerebral atrophy. No prior infarct. Laboratory Results WBC 5.04 10^3/uL (3.29-11.43) 10/31/23 05:00 RBC 2.54 10^6/uL (3.85-5.65) L 10/31/23 05:00 Hgb 9.10 g/dL (11.27-16.99) L 10/31/23 05:00 Hct 25.5 % (37-53) L 10/31/23 05:00 MCV 100.4 fl (82-101) 10/31/23 05:00 MCH 35.8 pg (27-33) H 10/31/23 05:00 MCHC 35.7 g/dL (30-55) 10/31/23 05:00 RDW 14.3 % (12.1-15.1) 10/31/23 05:00 Plt Count 122 10^3/cmm (157-399) L 10/31/23 05:00 MPV 12.2 fL (7.4-10.4) H 10/31/23 05:00 Neut % (Auto) 69.0 % 10/31/23 05:00 Lymph % (Auto) 26.6 % 10/31/23 05:00 Cambria % (Auto) 3.8 % 10/31/23 05:00 Eos % (Auto) 0.0 % 10/31/23 05:00 Baso % (Auto) 0.4 % 10/31/23 05:00 Neut # (Auto) 3.48 10^3/uL (1.8-7.7) 10/31/23 05:00 Lymph # (Auto) 1.3 10^3/uL (0.8-4.8) 10/31/23 05:00 Cambria # (Auto) 0.2 10^3/uL (0.2-0.9) 10/31/23 05:00 Eos # (Auto) 0.0 10^3/uL (0.0-0.8) 10/31/23 05:00 Baso # (Auto) 0.0 10^3/uL (0.0-0.1) 10/31/23 05:00 Nucleated RBC % (auto) 0.4 % 10/31/23 05:00 Nucleated RBCs # 0.0 /100WBC 10/31/23 05:00 PT 20.10 SECONDS (12.1-14.9) H 10/29/23 11:55 INR 1.65 (0.8-1.2) H 10/29/23 11:55 APTT 30.3 SECONDS (23.9-36.7) 10/29/23 11:55 Specimen Type Arterial 10/30/23 02:43 Sample Site Brachial, left 10/30/23 02:43 ABG pH 7.43 (7.35-7.45) 10/30/23 02:43 ABG pCO2 39.6 mmHg (35-45) 10/30/23 02:43 ABG pO2 87.5 mmHg (80.0-100.0) 10/30/23 02:43 ABG PO2/FiO2 Ratio 0 10/30/23 02:43 ABG HCO3 26.5 mmol/L (22-26) H 10/30/23 02:43 ABG O2 Saturation 99.0 10/29/23 15:20 ABG Base Excess 2.0 mmol/L (-2.0-2.0) 10/30/23 02:43 Bertrand Test Pos 10/30/23 02:43 A-a O2 Gradient Not Reportable 10/29/23 15:20 Hematocrit 26.5 % (42-52) L 10/30/23 02:43 Hgb O2 Saturation 97.3 % (95-100) 10/29/23 15:20 Carboxyhemoglobin 0.9 %THgb (0.4-20.1) 10/29/23 15:20 Methemoglobin 0.9 % (0.4-1.5) 10/29/23 15:20 Total Hemoglobin 9.9 g/dL (14-18) L 10/29/23 15:20 Sodium 143.0 mmol/L (131-143) 10/29/23 15:20 Potassium 3.2 mmol/L (3.5-5.0) L 10/29/23 15:20 Glucose 250.0 mg/dL (70-115) H 10/29/23 15:20 Ionized Calcium 1.0 mmol/L (1.1-1.4) L 10/29/23 15:20 O2 Delivery Device Room air 10/30/23 02:43 FiO2 21.0 % 10/30/23 02:43 Hospital Internship ID yorna 10/30/23 02:43 Sodium 139 mmol/L (136-145) 10/31/23 05:00 Potassium 3.2 mmol/L (3.5-5.1) L 10/31/23 05:00 Chloride 102 mmol/L (98-107) 10/31/23 05:00 Carbon Dioxide 28 mmol/L (22-29) 10/31/23 05:00 Anion Gap 12.2 (5-19) 10/31/23 05:00 BUN 4 mg/dL (6-20) L 10/31/23 05:00 Creatinine 0.4 mg/dL (0.7-1.2) L 10/31/23 05:00 GFR Calculation 280.2 mL/min (90-130) H 10/31/23 05:00 Glucose 130 mg/dL (65-115) H 10/31/23 05:00 POC Glucose 154 mg/dL (70-110) H 10/31/23 06:23 Estimat Average Glucose 85 10/29/23 18:42 Hemoglobin A1c 4.6 % (4.0-6.0) 10/29/23 18:42 Serum Osmolality 327 mOsm/kg (278-305) H 10/29/23 11:55 Calculated Osmolality 287 mOsm/kg (285-295) 10/31/23 05:00 Lactic Acid 29.9 mmol/L (0.5-2.2) H* 10/29/23 11:55 Lactic Acid (Sepsis) 27.8 mmol/L (0.5-2.2) H* 10/29/23 14:00 Lactate 1.5 mmol/L (0.5-2.2) 10/30/23 04:56 Uric Acid 6.5 mg/dL (3.4-7.0) 10/30/23 04:56 Calcium 8.7 mg/dL (8.5-10.5) 10/31/23 05:00 Phosphorus 0.3 mg/dL (2.5-4.5) L* D 10/30/23 04:56 Magnesium 1.7 mg/dL (1.7-2.3) 10/30/23 04:56 Iron 110 ug/dL (59-158) 10/30/23 04:56 TIBC 127 mcg/dl 10/30/23 04:56 % Saturation 86.6 % (20-50) H 10/30/23 04:56 Unsat Iron Binding < 17 ug/dL (112-347) L 10/30/23 04:56 Total Bilirubin 2.5 mg/dL (0.15-1.2) H 10/31/23 05:00 AST 443 U/L (0-40) H 10/31/23 05:00 ALT 136 U/L (0-41) H 10/31/23 05:00 Alkaline Phosphatase 276 U/L (40-130) H 10/31/23 05:00 Ammonia 56 umol/L (16-60) 10/30/23 04:56 Creatine Kinase 38 U/L (39-308) L 10/30/23 04:56 Troponin T Baseline 12 ng/L (0-15) 10/29/23 11:55 Troponin T 120 Minute 17.60 ng/L (0-15) H 10/29/23 14:00 Delta Troponin T 5.60 ABS# (0-10) 10/29/23 14:00 Troponin T Hi Sens 6Hr 34.23 ng/L (0-15) H 10/29/23 18:42 Troponin T Hi Sens 6Hr Delta 22.23 ng/L (0-12) H* 10/29/23 18:42 NT-Pro-B Natriuret Pep 2430 pg/mL (0-125) H 10/30/23 04:56 Total Protein 6.4 g/dL (6.6-8.7) L 10/31/23 05:00 Albumin 2.8 g/dL (3.5-5.2) L 10/31/23 05:00 Globulin 3.6 g/dL (1.3-4.6) 10/31/23 05:00 Triglycerides 89 mg/dL (0-150) 10/30/23 04:56 Cholesterol 110 mg/dL (0-200) 10/30/23 04:56 LDL Cholesterol, Calc 78 mg/dL (50-129) 10/30/23 04:56 HDL Cholesterol 14 mg/dL (60-100) L 10/30/23 04:56 LDL/HDL Ratio 5.57 RATIO (0.00-3.22) H 10/30/23 04:56 Cholesterol/HDL Ratio 7.86 mg/dL (1.0-5.00) H 10/30/23 04:56 Lipase 34 U/L (13-60) 10/29/23 18:42 Vitamin B12 1304 pg/mL (232-1245) H 10/31/23 05:00 TSH 0.03 uIU/mL (0.27-4.20) L 10/30/23 04:56 Urine Color Yellow (Yellow) 10/29/23 13:25 Urine Appearance Clear (CLEAR) 10/29/23 13:25 Urine pH 5 (5-7) 10/29/23 13:25 Ur Specific Warren 1.020 (1.005-1.030) 10/29/23 13:25 Urine Protein Neg (Negative) 10/29/23 13:25 Urine Glucose (UA) 1+ (Normal) H 10/29/23 13:25 Urine Ketones 1+ (Negative) H 10/29/23 13:25 Urine Blood Neg (Negative) 10/29/23 13:25 Urine Nitrate Negative (Negative) 10/29/23 13:25 Urine Bilirubin Neg (Negative) 10/29/23 13:25 Urine Urobilinogen 1 mg/dL (Negative) H 10/29/23 13:25 Ur Leukocyte Esterase Negative (Negative) 10/29/23 13:25 Salicylates < 0.3 mg/dL (3-10) L 10/29/23 11:55 Urine Opiates Screen Negative ng/mL (Negative) 10/29/23 13:25 Acetaminophen < 5.0 ug/mL (10-30) L 10/29/23 11:55 Ur Barbiturates Screen Negative ng/mL (Negative) 10/29/23 13:25 Ur Phencyclidine Scrn Negative ng/mL (Negative) 10/29/23 13:25 Ur Amphetamines Screen Negative ng/mL (Negative) 10/29/23 13:25 U Benzodiazepines Scrn Negative ng/mL (Negative) 10/29/23 13:25 Urine Cocaine Screen Negative ng/mL (Negative) 10/29/23 13:25 U Marijuana (THC) Screen Negative ng/mL (Negative) 10/29/23 13:25 Ethyl Alcohol < 10 mg/dL (0-10) 10/29/23 11:55 Serum Ketones Negative (Negative) 10/29/23 11:55 Hepatitis A IgM Ab Non-reactive (Nonreactive) 10/29/23 18:42 Hep Bs Antigen Non-reactive (Nonreactive) 10/29/23 18:42 Hep B Core IgM Ab Non-reactive (Nonreactive) 10/29/23 18:42 Hepatitis C Antibody Non-reactive (Nonreactive) 10/29/23 18:42 Blood Type O Positive 10/29/23 18:42 Rho(D) Type Rh positive 10/29/23 18:42 Antibody Screen Negative 10/29/23 18:42 Vitals Last Vital Signs Temp 97.6 F 10/31/23 08:00 Pulse 73 10/31/23 08:00 Resp 16 10/31/23 08:00 BP 136/89 10/31/23 08:00 Pulse Ox 100 10/31/23 08:00 O2 Del Method Room Air 10/31/23 08:00 Discharge Plan Discharge Patient Disposition: Home Condition: Stable Prescriptions: New folic acid 1 mg Tablet 1 mg PO DAILY Qty: 90 0RF Vitamin B-1 (mononitrate) 100 mg Tablet 100 mg PO DAILY Qty: 90 0RF Continued metoprolol succinate 50 mg tablet extended release 24 hr 50 mg PO QAM tramadol 50 mg tablet 50 mg PO BID PRN (Reason: Pain) Patient Comments: takes for pancreatitis or other pain when needed baclofen 20 mg tablet 20 mg PO BID PRN (Reason: muscle relaxer) Patient Comments: Takes for pancreatitis pain when needed amlodipine 10 mg tablet 10 mg PO QAM omeprazole 20 mg capsule,delayed release(DR/EC) 20 mg PO QAM Xifaxan 550 mg tablet 550 mg PO BID Patient Comments: Pt no longer taking, prescribed in 07/2023 multivitamin Tablet 2 tab PO DAILY Qty: 90 0RF Discontinued ibuprofen 800 mg tablet 800 mg PO TID PRN (Reason: Pain) Patient Comments: takes for pancreatitis or other pain when needed Biktarvy 50-200-25 mg tablet 1 tab PO QAM Patient Comments: Pt has only taken 3-4 times last few months but this is prescribed Discharge Orders: Discharge Order (Routine); Ordered 10/31/23 Ordered By: Bam Giles Patient Instructions: Alcohol Abuse, Thiamine (By mouth), Folic Acid (By mouth), Alcohol Use Disorder (GEN), Opioid Safety Activity Restrictions/Additional Instructions: Follow-up with your infectious disease provider soon as possible to discuss regarding severe lactic acidosis suspected related to Biktarvy. Stop Biktarvy at this time, discussed with your infectious disease provider regarding alternatives. Please follow-up with your primary doctor for reassessment of liver function after liver injury/hepatitis. Avoid any alcohol, avoid any NSAIDs (ibuprofen, etc.), any other medications that may cause liver injury. Acute viral hepatitis panel was negative. You were found to have elevated transferrin saturation which was checked due to some anemia, hemoglobin 9.1. Elevated transfer saturation may have been due to the acute liver dysfunction/hepatitis, however, sometimes may indicate iron overload and sometimes this can cause progressive liver disease. Please have your primary provider follow-up and recheck transference saturation, to see if it is improving with improvement in your liver function, otherwise assess for possible hemochromatosis or other cause of iron overload. Please have your primary doctor follow-up regarding anemia with you, hemoglobin 9.1, as well as lower platelets, 122. Seek medical attention in case you notice any bleeding or dark stools. Please stop smoking, continue smoking will increase your risk of heart attack, stroke, lung disease, various cancers and other complications. Have your primary doctor follow-up your thyroid function after you come back winder to your usual baseline. Your TSH was low, 0.03 which may have been related to the acute illness. Follow-up with your primary doctor regarding mild elevation in troponin, thought to be demand ischemia in the setting of acute illness, but he please have your primary doctor follow-up and consider further assessment for underlying coronary disease due to increased risk of coronary disease with smoking, other comorbidities. In case of any worsening or new concerning symptoms, seek medical attention. Discharge Attestations Time Spent in Discharge Care*: greater than 30 min Quality Metrics Clinical Quality Measures [ No reported AMI, CVA or VTE this stay] Coding Level of Care Code 16815 Total time (in minutes) for Discharge: 55 Diagnoses Acute metabolic encephalopathy G93.41 Acute lactic acidosis E87.21 Metabolic acidosis E87.20 Hypoglycemia E16.2 Acute hypokalemia E87.6 Facial droop R29.810 Alcoholic liver disease K70.9 Chronic alcoholism F10.20 History of pancreatitis Z87.19 History of esophageal varices Z87.19 Macrocytic anemia D53.9 Hypertension I10 Human immunodeficiency virus B20 Nicotine dependence F17.200 Moderate protein-calorie malnutrition E44.0
--- NOTE | 2023-10-31 10:03 | PC.NURSE ---
D/C pending lab draw of mag and phos and morning rounds with Dr. Giles.
[2023-10-31 10:37] LABS: Magnesium 1.6 mg/dL (1.7-2.3)
[2023-10-31 11:00] LABS: Phosphorus 0.9 mg/dL (2.5-4.5)
--- NOTE | 2023-10-31 11:21 | PC.NURSE ---
Critical phosphorus results given to Chan. Mag was also low. New orders verbally received from Dr. Giles. Pt will need to receive these prior to d/c.
[2023-10-31 11:36] LABS: Glucose Point of Care 171 mg/dL (70-110)
[2023-10-31] MEDS: magnesium sulfate premix 4 GM/100 ML PREMIX IV (11:54)
[2023-10-31] MEDS: potassium phosphate (mEq K) 40 MEQ in sodium chloride 0.9% (100 ml) 100 ML 27.2699999999999996 MEQ IV (12:20)
[2023-10-31 16:03] LABS: Alcohol, Methyl NONE DETECTED (NONE DETECTED); Volatile Analysis Performed On SERUM/PLASMA
[2023-10-31 23:45] LABS: Absolute CD4 + Cells 129 cells/uL (490-1740); Absolute Lymphocytes 250 cells/uL (850-3900); Absoulte CD8+Cells 85 cells/uL (180-1170); CD4/CD8 Ratio 1.51 (0.86-5.00); Percent CD8 34 % (12-42); Percentage CD4 51 % (30-61)
[2023-11-01 13:50] LABS: HIV RNA (CPY/ML) NOT DETECTED (NOT DETECTED); HIV RNA LOG NOT DETECTED copies/mL (NOT DETECTED)
--- NOTE | 2023-11-05 15:22 | P.MISC_ITS ---
Miscellaneous Note Note: Labs came back after discharge as follows: Laboratory Tests 10/29/23 15:05 % CD3/CD4 Cells 51 Absolute CD4 Count 129 L CD4/CD8 Ratio 1.51 % CD8 Cells 34 Absolute CD8 Count 85 L HIV-1 RNA copies/m L Not detected HIV-1 RNA (PCR) lo g10 Not detected Attempts to contact patient/partner at number provided not successful. Followup is in [place] with Dr Du. Patient is not on any prophylactic coverage for low counts. Biktarvy stopped due to severe lactic acidosis this presentation. Reported Mr Fantasma had not been taking regularly prior to admission. Cultures during stay no growth. WBCs improved with treatment to more normal appearing count and differential. Sending this information to Dr Du office via CC on this note.
== END 2023-10-31 17:15 | disposition home or self-care (01) | DRG 640 ==
LOC: ER 12:35 → ICU 13:08 → MEDSURG 10-31 02:36
PROVIDERS: Admitting Provider Hospitalist; Emergency Provider Family Medicine; Visit Provider Internal Medicine
DX: E16.2 Hypoglycemia, unspecified (principal); E43 Unspecified severe protein-calorie malnutrition; E87.20 Acidosis, unspecified; E51.2 Wernicke's encephalopathy; K86.0 Alcohol-induced chronic pancreatitis; G93.40 Encephalopathy, unspecified; Z68.1 Body mass index [BMI] 19.9 or less, adult; K70.30 Alcoholic cirrhosis of liver without ascites; F10.20 Alcohol dependence, uncomplicated; Z21 Asymptomatic human immunodeficiency virus [HIV] infection status; T50.996A Underdosing of other drugs, medicaments and biological substances, initial encounter; I10 Essential (primary) hypertension; F32.A Depression, unspecified; F17.210 Nicotine dependence, cigarettes, uncomplicated; E87.6 Hypokalemia; R29.810 Facial weakness; D51.9 Vitamin B12 deficiency anemia, unspecified; E83.42 Hypomagnesemia; E83.39 Other disorders of phosphorus metabolism; Z91.128 Patient's intentional underdosing of medication regimen for other reason
CPT/HCPCS: 36415; 36416; 36556; 36592; 36600; 51702; 70450; 71045; 80048; 80051; 80053; 80061; 80074; 80306; 80307; 80320; 81003; 82009; 82140; 82274; 82330; 82550; 82607; 82803; 82805; 82962; 83036; 83540; 83550; 83605; 83690; 83735; 83880; 83930; 84100; 84443; 84484; 84550; 85025; 85610; 85730; 86360; 86850; 86900; 87040; 87536; 92523; 92610; 93005; 96365; 96372; 96374; 96375; 96376; 97161; 97165; 99291; 99292; C9113; J0696; J1450; J2060; J3370; J3411; J3475; J3480; J3490; J7030; J7050; J7060; J7120